=== PATIENT | male | born 1930 | race Caucasian/White ===

== ENCOUNTER 2016-11-29 05:49 | Inpatient (IN) | payer OTHER, BC ==
[2016-11-21 14:51] VITALS: BMI 28.0
--- NOTE | 2016-11-21 15:31 | PAT Medication Instructions ---
Service Date Nov 21, 2016. Current Home Medication List Carvedilol (Coreg), 25 MG PO BID Finasteride (Proscar), 5 MG PO QPM Furosemide (Lasix), 40 MG PO QAM Hydrocodone/Acetaminophen 5MG/325MG ([place] 5MG/325MG), 1 TABLET PO PRN PRN for Pain Nitroglycerin (Nitrostat), 0.3 MG UT PRN Warfarin Sod (Jantoven), 3 MG PO HS [Co Q10], 200 MG PO QAM [Medication Lotion], 1 DOSE TOP PRN Medication Instructions For Your Scheduled Surgery - Check with surgeon/cyber operator for instructions: Warfarin Sod (Jantoven), 3 MG PO HS - Hold the following medications starting 11/22/16: [Co Q10], 200 MG PO QAM - Hold the following medications 24 hours prior to surgery: [Medication Lotion], 1 DOSE TOP PRN - Hold the following medications the morning of surgery: Furosemide (Lasix), 40 MG PO QAM - Take the following medications the morning of surgery with a sip of water: Carvedilol (Coreg), 25 MG PO BID Hydrocodone/Acetaminophen 5MG/325MG (Thayne 5MG/325MG), 1 TABLET PO PRN PRN for Pain (okay to take up to 4 hours prior to surgery if needed) Nitroglycerin (Nitrostat), 0.3 MG UT PRN (if needed) - Take the following medications as scheduled the night before surgery: Hydrocodone/Acetaminophen 5MG/325MG ([place] 5MG/325MG), 1 TABLET PO PRN PRN for Pain (if needed) Nitroglycerin (Nitrostat), 0.3 MG UT PRN (if needed) Finasteride (Proscar), 5 MG PO QPM If you have any questions please call us at [phone] or [phone] or [phone]
--- NOTE | 2016-11-21 16:06 | DIAGNOSTIC IMAGING REPORT ---
CHEST PREADMISSION(PA/LAT) CLINICAL HISTORY: Preoperative chest COMPARISON STUDY: 06/05/2008 FINDINGS: Heart remains enlarged. There are postsurgical changes of a midline sternotomy. There is minor basilar atelectasis/scarring. There is no acute parenchymal consolidation. There is no failure. There is stable sclerosis of the left fourth rib anteriorly.[ IMPRESSION: Cardiomegaly. No acute findings. Electronically signed by: Cy Pelaez M.D. 11/21/2016 4:04 PM Dictated Date/Time: 11/21/2016 4:03 PM
[2016-11-21 16:27] LABS: BASO % 0.4 %; BASO ABS # 0.02 K/uL (0-0.2); COMPLETE YES; EOS % 1.8 %; HEMATOCRIT 41.4 % (42-52); IG% 0.2 %; LYMPH % 19.3 %; LYMPH ABS # 1.09 K/uL (1.2-3.4); MEAN CELL VOLUME 95.2 fL (80-100); MEAN CORPUSCULAR HEMOGLOBIN 31.3 pg (25-34); MEAN CORPUSCULAR HGB CONC 32.9 g/dl (32-36); MEAN PLATELET VOLUME 9.4 fL (7.4-10.4); MONO % 12.6 %; NEUT % 65.7 %; PLATELET COUNT 166 K/uL (130-400); RED BLOOD COUNT 4.35 M/uL (4.7-6.1); WHITE BLOOD COUNT 5.64 K/uL (4.8-10.8)
[2016-11-21 16:39] LABS: URINE APPEARANCE CLOUDY (CLEAR); URINE BILIRUBIN NEG (NEG); URINE COLOR YELLOW; URINE NITRITE NEG (NEG); URINE SPECIFIC GRAVITY 1.022 (1.000-1.030); UROBILINOGEN NEG (NEG)
[2016-11-21 16:41] LABS: INR 1.9 (0.9-1.1); MANUAL MICROSCOPIC REQUIRED? NO; PARTIAL THROMBOPLASTIN RATIO 1.4; PROTHROMBIN TIME (PATIENT) 20.6 SECONDS (9.0-12.0); REVIEW REQ? NO; SULFASALICYLIC ACID NEG (NEG)
[2016-11-21 16:46] LABS: BUN/CREATININE RATIO 30.2 (10-20); CALCIUM 9.5 mg/dl (8.5-10.1); POTASSIUM 4.3 mmol/L (3.5-5.1)
[2016-11-22 07:41] LABS: ESTIMATED AVERAGE GLUCOSE 108 mg/dl; HA1C FLAG Normal (Normal)
--- NOTE | 2016-11-28 13:52 | History and Physical ---
History & Physical Date Nov 28, 2016. 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 for left total knee arthroplasty patient's failed attempts at conservative management including injections viscous supplementations bracing relative rest activity modification History of Present Illness The patient is a 86 year old male with complaints of severe end-stage DJD bone- on-bone changes left knee presents for left total knee arthroplasty Additional History Hepatic Disease: No Endocrine Disorder: No Kidney Disease: No Hypertension: Yes Heart Disease: Yes Bleeding Tendencies: No Infectious Diseases: No Allergies Coded Allergies: Statins (Unverified Adverse Reaction, Unknown, MUSCLE ACHES, 11/28/16) Home Medications Scheduled Carvedilol (Coreg), 25 MG PO BID Finasteride (Proscar), 5 MG PO QPM Furosemide (Lasix), 40 MG PO QAM Nitroglycerin (Nitrostat), 0.3 MG UT PRN Warfarin Sod (Jantoven), 3 MG PO HS [Co Q10], 200 MG PO QAM [Medication Lotion], 1 DOSE TOP PRN Scheduled PRN Hydrocodone/Acetaminophen 5MG/325MG ([place] 5MG/325MG), 1 TABLET PO PRN PRN for Pain Physical Examination Skin: warm/dry, no rash Eyes: normal inspection, EOMI, sclerae normal ENT: normal ENT inspection, pharynx normal Head: normocephalic, atraumatic Neck: supple, no adenopathy, trachea midline Cardiovascular: regular rate, rhythm, no edema, no murmur Abdomen / GI: normal bowel sounds, non tender Back: normal inspection Extremities: normal inspection, normal range of motion, + pertinent finding ( severe end-stage DJD left knee plan for left total knee arthroplasty) Neurologic/Psych: no motor/sensory deficits, alert, normal reflexes, oriented x 3 Diagnosis Severe DJD left knee varus alignment plan for left total knee arthroplasty Plan of Treatment Was over pain management DVT prophylaxis status post total knee arthroplasty as well as probable a rehabilitation
[2016-11-29] VITALS (10 sets, daily range): BP systolic 102–154; BP diastolic 64–98; PULSE 73–96; TEMP 36.3–36.6; O2SAT 91–97; Ht 188 cm; Wt 99.3 kg
[~2016-11-29] VITALS: Ht 188 cm; Wt 99.3 kg
[~2016-11-29 05:49] MED LIST: CARV25TA2 PO; CO Q10 PO; FINA5TAB PO; FRS/40 PO; HYDR-5688 PO; NTRSL3 UT; WARF3TAB6 PO; [UNRECOGNIZED DRUG - OTHER] TOP
[2016-11-29] MEDS ORDERED: CeleBREX 200 MG CAP PO SCH (06:00)
[2016-11-29] MEDS ORDERED: CEFAZOLIN 2000 MG/60 ML D5W 60 ML IV SCH (06:00)
[2016-11-29] MEDS ORDERED: LACTATED RINGER'S 1000ML 1,000 ML IV SCH (06:00)
[2016-11-29] MEDS ORDERED: GABAPENTIN 300 MG CAP PO SCH (06:00)
[2016-11-29] MEDS ORDERED: FAMOTIDINE 20 MG TAB PO SCH (06:00)
[2016-11-29] MEDS ORDERED: ACETAMINOPHEN 500 MG TAB PO SCH (06:00)
[2016-11-29] MEDS ORDERED: DEXAMETHASONE 4 MG TAB PO SCH (06:00)
[2016-11-29] MEDS ORDERED: LACTATED RINGER'S 1000ML IV SCH (06:00)
[2016-11-29] MEDS ORDERED: METOCLOPRAMIDE HCL 10 MG TAB PO SCH (06:00)
[2016-11-29] MEDS ORDERED: LACTATED RINGER'S 1000ML 500 ML IV ONE (06:00)
[2016-11-29] MEDS ORDERED: ROPIVACAINE 5MG/ML 30 ML 150 MG, BUPIVACAINE/EPINEPHR 0.5% MPF 30 ML, KETOROLAC TROMETH... INFIL SCH ×7 (06:00)
[2016-11-29] MEDS ORDERED: BUPIVACAINE 0.5 % 5 MG/1 ML PF 10ML VIAL ONE (06:19)
--- NOTE | 2016-11-29 06:56 | History & Physical Bridge Note ---
H&P Re-Evaluation Bridge Note: I have examined the patient, reviewed the History & Physical and in the interval since the performance of the History & Physical I have noted the following changes of clinical significance: No changes noted
[2016-11-29] MEDS ORDERED: FENTANYL CITRATE INJ 50 MCG/1 ML 2 ML VIAL ONE (07:01)
[2016-11-29] MEDS ORDERED: MIDAZOLAM HCL 1 MG/ML 2ML VIAL ONE ×2 (07:01)
[2016-11-29] MEDS ORDERED: BACITRACIN 50000 UNIT VIAL ONE (07:04)
[2016-11-29] MEDS ORDERED: ORTHO JOINT ANESTHETIC ONE (07:04)
[2016-11-29] MEDS ORDERED: POVIDONE-IODINE OP SOLN 30 ML BTL ONE (07:04)
[2016-11-29] MEDS ORDERED: FENTANYL CITRATE INJ 50 MCG/1 ML 2 ML VIAL IV PRN (07:15)
[2016-11-29] MEDS ORDERED: EpHEDrine SULFATE INJ 50 MG/ML AMP IV PRN (07:15)
[2016-11-29] MEDS ORDERED: ATROPINE SULFATE 0.1 MG/ML 5ML SYR IV PRN (07:15)
[2016-11-29] MEDS ORDERED: ONDANSETRON INJ 2 MG/ML 2 ML VIAL IV PRN ×2 (07:15→09:15)
[2016-11-29 07:54] LABS: INR 1.1 (0.9-1.1); PARTIAL THROMBOPLASTIN RATIO 1.1; PROTHROMBIN TIME (PATIENT) 11.5 SECONDS (9.0-12.0)
[2016-11-29] MEDS ORDERED: MAGNESIUM HYDROXIDE SUSP 30 ML UDC PO PRN (09:15)
[2016-11-29] MEDS ORDERED: ZOLPIDEM TARTRATE 5 MG TAB PO PRN (09:15)
[2016-11-29] MEDS ORDERED: NITROGLYCERIN 0.3 MG/1 TAB 100 TAB BTL UT PRN (09:15)
[2016-11-29] MEDS ORDERED: BISACODYL 10 MG SUPP PR PRN (09:15)
[2016-11-29] MEDS ORDERED: ALUMINUM/MAGNESIUM/SIMETH (MAALOX MAX) 30 ML UDC PO PRN (09:15)
[2016-11-29] MEDS ORDERED: MoRPHine SULFATE 2 MG/ML CARP IV PRN ×2 (09:15→12:15)
[2016-11-29] MEDS ORDERED: SOD PHOSPHATE/SOD BIPHOSPHATE ENEMA 132 ML BTL PR PRN (09:15)
--- NOTE | 2016-11-29 09:55 | [facility] Operative Report ---
Operative Report Operative Date Nov 29, 2016. Pre-Operative Diagnosis Left knee severe degenerative joint disease Post-Operative Diagnosis Left knee severe degenerative joint disease Procedure(s) Performed Left total knee arthroplasty utilizing Chakraborty & Nephew journey 2 nonlocked total knee arthroplasty size 9 femur A tibia 11 poly-[address] Bill Coburn Production Quality Analyst Surgeon(s) Clemente Brady PA-C Estimated Blood Loss 5 mL Findings Patient presents with severe end-stage DJD about the left knee Nourse wants to conservative therapy is for left total knee arthroplasty after failing injections were steroid injections viscus supplementation relative rest activity modification and bracing Specimens A. Left knee bone and tissue Complication(s) None Disposition Recovery Room / PACU Indications Patient presents with severe end-stage DJD subchondral sclerosis varus alignment [id number] changes medial patellofemoral compartment for left total knee arthroplasty after failing conservative management Description of Procedure After proper prepping and draping of the left lower extremity anterior midline incision was made over the region of the extensor extensor mechanism after meticulous hemostasis was obtained and maintained in subcutaneous tissues a medial parapatellar incision was made The patella was subluxed lateralward the medial lateral gutter were cleaned from any hypertrophic synovitis and scar tissue of the distal femoral block was placed and the distal femoral osteotomy cut was made subsequently the chamfers anterior and posterior osteotomy cuts were made utilizing the 4-in-1 block the tibia was subsequently subluxed anteriorward medial and ateral meniscal remnants were excised in their entirety remnants of the anterior and posterior cruciate ligaments were excised in their entirety excellent exposure of the proximal tibia was obtained the tibial osteotomy guide was placed on the proximal tibial osteotomy cut was made once again the knee was irrigated with copious amounts of sterile saline solution the patella was subsequently everted lateralward thickened scar tissue around the patella was removed the patella was subsequently cut utilizing a freehand technique and was drilled prepared for final preparation and placement of patella socially flexion-extension gaps were checked and the equal and symmetric trials were placed to the appropriate femoral and tibial trials with poly-spacer being placed for equal flexion and extension gaps and full range of motion including extension to 0 and flexion to 140 the trial components after having been taken to recovery range of motion was subsequently removed meticulous hemostasis was obtained and maintained subsequently a knee block injection of joint cocktail including ropivacaine 0.5% 150 mg. Bupivacaine 0.5 % epinephrine 1-200,030 mL's toradol 30 mg dexamethasone 4 mg ketamine 10 mg clonidine 100 micrograms normal saline solution 30 mg was infiltrated into the soft tissues of the posterior knee medial lateral gutters and periosteal synovium special attention was paid to protect neurovascular structures at all times subsequently trial components having been removed the knee was irrigated with sterile saline solution. debris was removed the proximal tibia was subsequently prepared and was made ready for the placement of the tibial component tibial component was also cemented and tamped into position the femoral component was subsequently placed and cemented in the position the patellar component was subsequently cemented in position because hemostasis once again obtained and maintained wound having been thoroughly irrigated with debridement and debridement lavage was performed as well as a medial parapatellar incision closed with #1 Vicryl in interrupted fashion subcutaneous was closed with #2 Vicryl skin was closed with skin clips. PA-C was necessary for prepping and drapping as well as wound closure of deep fascia Sub cutaneous tissue and skin and was necessary for the case. A sterile compressive dressing was placed patient was taken to recovery in stable condition of report dictated by Almas I attest to the content of the Intraoperative Record and any orders documented therein. Any exceptions are noted below. I attest to the content of the Intraoperative Record and any orders documented therein. Any exceptions are noted below.
--- NOTE | 2016-11-29 11:02 | DIAGNOSTIC IMAGING REPORT ---
LEFT KNEE 2 VIEWS History: Left total knee arthroplasty. Degenerative arthritis. Postop. FINDINGS: The patient is status post a left total knee arthroplasty. The hardware is intact. No fracture or dislocation. Surgical drains are in place. IMPRESSION: Left total knee arthroplasty. No evidence for hardware complication. Electronically signed by: Nikos Wan M.D. 11/29/2016 11:01 AM Dictated Date/Time: 11/29/2016 11:00 AM
--- NOTE | 2016-11-29 11:53 | Anesthesiology Progress Note ---
Anesthesia Post Op Note Date & Time Nov 29, 2016 at 11:53 Vital Signs Pain Intensity: 0 Vital Signs Past 12 Hours Date Time Temp Pulse Resp B/P (MAP) Pulse Ox O2 Delivery O2 Flow Rate FiO2 11/29/16 11:05 36.4 78 16 143/85 95 Nasal Cannula 2 11/29/16 10:55 77 16 143/89 98 Nasal Cannula 2 11/29/16 10:45 77 16 141/85 98 Oxymask 10 11/29/16 10:35 71 16 133/83 100 Oxymask 10 11/29/16 10:29 36.7 72 16 139/90 98 Oxymask 10 11/29/16 06:42 36.5 81 20 151/95 (113) 92 Room Air Notes Mental Status: alert / awake / arousable, participated in evaluation Pt Amnestic to Procedure: Yes Nausea / Vomiting: adequately controlled Pain: adequately controlled Airway Patency, RR, SpO2: stable & adequate BP & HR: stable & adequate Hydration State: stable & adequate Neuraxial Anesthesia: was administered, sensory block is resolving Anesthetic Complications: no major complications apparent
[2016-11-29] MEDS: D5W AND 1/2NSS + 20MEQ KCL 1,000 ML IV SCH ×2 (12:11→22:11)
[2016-11-29] MEDS ORDERED: MoRPHine SULFATE 10 MG/ML CARP/VIAL IV PRN (12:15)
[2016-11-29] MEDS ORDERED: MoRPHine SULFATE 4 MG/ML 1 ML CARP\\VIAL IV PRN (12:15)
[2016-11-29] MEDS: ACETAMINOPHEN 500 MG TAB PO SCH ×2 (14:39→22:11)
[2016-11-29] MEDS: CEFAZOLIN IV 2,000 MG in DEXTROSE 5% 50ML 50 ML IV SCH ×2 (16:00→23:58)
[2016-11-29] MEDS ORDERED: WARFARIN SOD 5 MG TAB PO SCH (16:00)
[2016-11-29] MEDS: CARVEDILOL 25 MG TAB PO SCH (21:00)
[2016-11-29] MEDS: FINASTERIDE 5 MG TAB PO SCH (22:09)
[2016-11-29] MEDS: SENNA 8.6 MG TAB PO SCH (22:10)
[2016-11-29] MEDS: OXYCODONE HCL 10 MG TABCR (OXYCONTIN) PO SCH (22:10)
[2016-11-29] MEDS: DOCUSATE SODIUM 100 MG CAP PO SCH (22:11)
[2016-11-29] MEDS: OXYCODONE HCL IR 5 MG TAB (IMMEDIATE RELEASE) PO PRN (23:58)
[2016-11-30 03:19] VITALS: BP 130/79; PULSE 75; TEMP 36.7; O2SAT 93
[2016-11-30] MEDS: OXYCODONE HCL IR 5 MG TAB (IMMEDIATE RELEASE) PO PRN (05:38)
[2016-11-30] MEDS: ACETAMINOPHEN 500 MG TAB PO SCH ×3 (05:38→20:46)
[2016-11-30 06:31] LABS: HEMATOCRIT 35.2 % (42-52); MEAN CELL VOLUME 94.4 fL (80-100); MEAN CORPUSCULAR HEMOGLOBIN 31.4 pg (25-34); MEAN CORPUSCULAR HGB CONC 33.2 g/dl (32-36); MEAN PLATELET VOLUME 9.6 fL (7.4-10.4); PLATELET COUNT 170 K/uL (130-400); RED BLOOD COUNT 3.73 M/uL (4.7-6.1); WHITE BLOOD COUNT 20.88 K/uL (4.8-10.8)
[2016-11-30 06:59] LABS: BUN/CREATININE RATIO 24.8 (10-20); CREATININE 1.3 mg/dl (0.60-1.40); POTASSIUM 4.4 mmol/L (3.5-5.1)
--- NOTE | 2016-11-30 07:03 | Orthopedic Progress Note ---
Orthopedic Progress Note Date of Service Nov 30, 2016. Subjective Post OP Day: 1 (s/p Left TKA) Reports: feeling well, pain controlled w PO medications, Denies: complaints, chest pain, SOB, nausea / vomiting, light headedness, calf pain Objective calves soft nontender, N/V intact, capillary refill less than 2 sec., dressing C /D/I, A&O x3, toes mobile, hemovac drainage (175cc/8 hours) Date Time Temp Pulse Resp B/P (MAP) Pulse Ox O2 Delivery O2 Flow Rate FiO2 11/30/16 03:19 36.7 75 16 130/79 (96) 93 Room Air 11/29/16 23:50 Room Air 11/29/16 22:51 36.5 73 16 109/72 (84) 91 Room Air 11/29/16 22:15 77 106/64 (78) 11/29/16 19:37 36.3 79 18 102/67 (79) 95 Room Air 11/29/16 16:59 36.5 76 17 149/85 (106) 97 Nasal Cannula 3.0 11/29/16 16:00 96 Nasal Cannula 3.0 11/29/16 13:28 36.4 96 18 134/86 (102) 96 Nasal Cannula 3.0 11/29/16 12:27 36.4 82 18 147/96 (113) 97 Nasal Cannula 3.0 11/29/16 12:00 36.5 85 17 154/98 (116) 96 Nasal Cannula 3.0 11/29/16 11:25 36.6 77 17 147/88 (107) 96 Nasal Cannula 2.0 11/29/16 11:25 Nasal Cannula 2.0 11/29/16 11:25 Nasal Cannula 11/29/16 11:05 36.4 78 16 143/85 95 Nasal Cannula 2 11/29/16 10:55 77 16 143/89 98 Nasal Cannula 2 11/29/16 10:45 77 16 141/85 98 Oxymask 10 11/29/16 10:35 71 16 133/83 100 Oxymask 10 11/29/16 10:29 36.7 72 16 139/90 98 Oxymask 10 Laboratory Results 24 Hours: Test 11/30/16 06:10 Hematocrit 35.2 % Hemoglobin 11.7 g/dL Assessment & Plan Assessment: POD #1 s/p Left TKA -PT/OT -dvt proph with lenny/scd/coumadin- will f/u with PCP upon discharge for Coumadin management -plan for dc home with OPPT when stable Discharge Planning Discharge Planning: home with oppt DVT Prophylaxis: TEDs, SCDs, Coumadin Therapy: Physical Therapy
--- NOTE | 2016-11-30 07:05 | Discharge Instructions ---
Discharge Instructions Date of Service Nov 30, 2016. Admission Reason for Admission: Left Knee Osteoarthritis Discharge Discharge Diagnosis / Problem: Left Total Knee Replacement Discharge Goals Goal(s): Decrease discomfort, Improve function, Increase independence Activity Recommendations Activity Limitations: as noted below Weightbearing Status: Left weightbearing (as tolerated) . Instructions / Follow-Up Instructions / Follow-Up ACTIVITY RECOMMENDATIONS: SELF CARE INSTRUCTIONS AFTER TOTAL KNEE REPLACEMENT A. You may need to continue a physical therapy program after discharge from the hospital. There are several options available to you. Your doctor will assist you in selecting the best one for you. 1. An out-patient facility 2 to 3 times a week for therapy or home therapy. 2. Continue working on all exercises taught to you in the hospital. Your goals should be to increase bending of your knee to 90 degrees and beyond and to fully straighten your knee. B. You may progress at your own pace from walking with a walker or crutches to a cane; then to no assistive devices. C. Make walking a part of your daily routine. Be up as much as comfortable with rest periods throughout the day. Rest with leg elevation is very important. Use the ice wrap frequently for the first 3-4 weeks. D. There are no restrictions on activities. You may ride in a car, shop, participate in vocational case manager and all social activities. E. Wear the long elastic stockings (KENYA hose) 20 hours a day for 2 weeks after surgery. They can be removed several times a day for laundering and for a bath. F. You may shower, no tub baths until cleared by your doctor. SPECIAL CARE INSTRUCTIONS: VERY IMPORTANT TO READ AND REVIEW A. There are a few signs you need to watch for after you are home. Call [facility] if you notice any of the followin. Increased severe knee pain. Some pain is expected especially when you exercise. 2. Increased swelling in your leg or knee; pain or swelling of the calf muscle in either lower leg. 3. Any fluid drainage from the incision. 4. Shortness of breath or chest pain. B. Please call [facility] at if you have any concerns or questions about your operation or recovery. The doctor or his nurse will return your call promptly. C. You must take antibiotics before dental work, bladder, bowel or other surgery. Your doctor will provide you with a permanent care to carry describing this precaution. IMPORTANT: * REMEMBER TO TAKE ASPIRIN, 81 MG, TWICE DAILY FOR 4 WEEKS UNLESS OTHERWISE DIRECTED. THIS IS YOUR BLOOD THINNER. * HIGH RISK PATIENTS MAY BE PRESCRIBED A STRONGER BLOOD THINNER. THIS WILL BE PROVIDED AT DISCHARGE. * CALL IF INCREASED PAIN, REDNESS, DRAINAGE OR FEVER GREATER THAT 101. * WEAR KENYA HOSE 20 HOURS PER DAY FOR 2 WEEKS. * DERMABOND Prineo- This is a mesh tape dressing that is covered with glue. It should remain in place until the incision is properly healed, usually 10-14 days. This dressing is designed to naturally slough off. You may trim the excess mesh tape as it peels off. Incision may be briefly wet in a shower. Dry immediately by blotting with a clean, dry towel. Do not bath or swim until instructed by your doctor. Do not scratch, rub, or pick at the dressing. Do not apply any topical ointments or lotions until dressing is completely removed and/or instructed by your doctor. There may be a small piece of suture material at one end of your incision. Do not pull or trim this. If it is bothersome or catching on clothing, you may cover it with a band-aid. FOLLOW UP VISIT: If appointment is not already scheduled: Please call [facility] to make a follow-up appointment for 2 weeks after your surgery at . Current Hospital Diet Patient's current hospital diet: Regular Diet Discharge Diet Recommended Diet: Regular Diet Procedures Procedures Performed: Left total knee arthroplasty utilizing Chakraborty & Nephew journey 2 nonlocked total knee arthroplasty size 9 femur A tibia 11 poly-30 oval patella Pending Studies Studies pending at discharge: no Laboratory Results Hemoglobin A1c Test 11/21/16 15:45 Range/Units Estimated Average Glucose 108 mg/dl Hemoglobin A1c 5.4 4.5-5.6 % Medical Emergencies . Who to Call and When: Medical Emergencies: If at any time you feel your situation is an emergency, please call 911 immediately. . Non-Emergent Contact Non-Emergency issues call your: Primary Care Provider, Surgeon . "Provider Documentation" section prepared by Clemente Millard. . VTE Core Measure Inpt VTE Proph given/why not?: Tr[place] (Coumadin)Ira, [facility] [place] Drug Monitoring Program Search Results: patient reviewed within database, no issues identified
[2016-11-30 07:22] LABS: INR 1.1 (0.9-1.1)
[2016-11-30 07:23] VITALS: BP 141/88; PULSE 76; TEMP 36.4; O2SAT 92
[2016-11-30] MEDS: D5W AND 1/2NSS + 20MEQ KCL 1,000 ML IV SCH (08:00)
[2016-11-30] MEDS: DOCUSATE SODIUM 100 MG CAP PO SCH ×2 (08:05→20:45)
[2016-11-30] MEDS: CARVEDILOL 25 MG TAB PO SCH ×2 (08:06→20:45)
[2016-11-30] MEDS: PANTOprazole SOD 40 MG TAB PO SCH (08:06)
[2016-11-30] MEDS: OXYCODONE HCL 10 MG TABCR (OXYCONTIN) PO SCH ×2 (08:06→20:45)
[2016-11-30] MEDS: MULTIVITAMIN TAB PO SCH (08:06)
[2016-11-30] MEDS ORDERED: NURSING VERBAL MED ORDER ONE (08:15)
--- NOTE | 2016-11-30 08:15 | Anesthesiology Progress Note ---
Anesthesia Post Op Note Date & Time Nov 30, 2016 at 08:14 Vital Signs Vital Signs Past 12 Hours Date Time Temp Pulse Resp B/P (MAP) Pulse Ox O2 Delivery O2 Flow Rate FiO2 11/30/16 07:59 Room Air 11/30/16 07:23 36.4 76 18 141/88 (105) 92 Room Air 11/30/16 03:19 36.7 75 16 130/79 (96) 93 Room Air 11/29/16 23:50 Room Air 11/29/16 22:51 36.5 73 16 109/72 (84) 91 Room Air 11/29/16 22:15 77 106/64 (78) Notes Mental Status: alert / awake / arousable, participated in evaluation Pt Amnestic to Procedure: Yes Nausea / Vomiting: adequately controlled Pain: adequately controlled Airway Patency, RR, SpO2: stable & adequate BP & HR: stable & adequate Hydration State: stable & adequate Neuraxial Anesthesia: was administered, sensory block resolved Anesthetic Complications: no major complications apparent
[2016-11-30 10:54] VITALS: BP 97/61; PULSE 80; O2SAT 92
[2016-11-30 15:03] VITALS: BP 115/75; PULSE 66; TEMP 36.3; O2SAT 96
[2016-11-30] MEDS ORDERED: WARFARIN SOD 5 MG TAB PO SCH (16:00)
[2016-11-30 20:30] VITALS: BP 128/76; PULSE 73
[2016-11-30] MEDS: SENNA 8.6 MG TAB PO SCH (20:45)
[2016-11-30] MEDS: FINASTERIDE 5 MG TAB PO SCH (20:46)
[2016-11-30 23:06] VITALS: BP 129/77; PULSE 72; TEMP 36.4; O2SAT 98
[2016-12-01] MEDS: ACETAMINOPHEN 500 MG TAB PO SCH ×2 (05:36→13:59)
[2016-12-01 06:27] VITALS: BP 133/80; PULSE 70; TEMP 36.6; O2SAT 95
[2016-12-01 06:37] LABS: HEMATOCRIT 30.7 % (42-52); MEAN CELL VOLUME 94.2 fL (80-100); MEAN CORPUSCULAR HEMOGLOBIN 31.6 pg (25-34); MEAN CORPUSCULAR HGB CONC 33.6 g/dl (32-36); MEAN PLATELET VOLUME 9.1 fL (7.4-10.4); PLATELET COUNT 130 K/uL (130-400); RED BLOOD COUNT 3.26 M/uL (4.7-6.1); WHITE BLOOD COUNT 12.41 K/uL (4.8-10.8)
[2016-12-01 06:46] LABS: INR 1.4 (0.9-1.1); PROTHROMBIN TIME (PATIENT) 14.7 SECONDS (9.0-12.0)
[2016-12-01 07:07] LABS: BUN/CREATININE RATIO 28.2 (10-20); CALCIUM 8.6 mg/dl (8.5-10.1); CREATININE 1.3 mg/dl (0.60-1.40)
--- NOTE | 2016-12-01 08:04 | Orthopedic Progress Note ---
Orthopedic Progress Note Date of Service Dec 01, 2016. Subjective Post OP Day: 2 Reports: feeling well, Denies: chest pain, SOB, nausea / vomiting, light headedness, calf pain Objective calves soft nontender, N/V intact, incision C/D/I, A&O x3, toes mobile Date Time Temp Pulse Resp B/P (MAP) Pulse Ox O2 Delivery O2 Flow Rate FiO2 12/01/16 06:27 36.6 70 16 133/80 (97) 95 Room Air 11/30/16 23:06 36.4 72 16 129/77 (94) 98 Room Air 11/30/16 20:30 73 128/76 (93) 11/30/16 19:25 Room Air 11/30/16 16:10 Room Air 11/30/16 15:03 36.3 66 16 115/75 (88) 96 Room Air 11/30/16 10:54 80 16 97/61 (73) 92 Room Air Laboratory Results 24 Hours: Test 12/01/16 06:14 Hematocrit 30.7 % Hemoglobin 10.3 g/dL Prothromb Time International Ratio 1.4 Prothrombin Time 14.7 SECONDS Assessment & Plan Assessment: POD #2 s/p Left TKA -PT/OT -dvt proph with lenny/scd/coumadin- will f/u with PCP upon discharge for Coumadin management -plan for dc home with OPPT when stable Inhouse Planning Pain Management: Oxycontin, PO Tylenol, Oxy IR DVT Prophylaxis: TEDs, SCDs, Coumadin Discharge Planning Discharge Planning: home with oppt (DC HOME TODAY) DVT Prophylaxis: TEDs, SCDs, Coumadin Therapy: Physical Therapy
[2016-12-01] MEDS ORDERED: RXC5 PO (08:07)
[2016-12-01] MEDS ORDERED: ONDA8TAB6 PO (08:07)
[2016-12-01] MEDS ORDERED: OXYSR10 PO (08:07)
[2016-12-01] MEDS ORDERED: ACET-24 PO (08:07)
[2016-12-01] MEDS ORDERED: SNK PO (08:07)
--- NOTE | 2016-12-01 08:19 | Discharge Summary ---
Orthopedic Discharge Summary Admission Date/Reason Nov 29, 2016 at 06:40 Left Knee Osteoarthritis. Discharge Date/Disposition Dec 01, 2016 Home Diagnosis Principal Diagnosis: left knee osteoarthritis Procedure(s) Performed Left total knee arthroplasty utilizing [employer] journey 2 nonlocked total knee arthroplasty size 9 femur A tibia 11 poly-30 oval patella Consultations none Medication Reconciliation New Medications: Ondansetron Hcl (Zofran) 8 Mg Tab 8 MG PO Q8 PRN for Nausea, #20 TAB Acetaminophen (Sb Non-Aspirin Extra Stre) 500 Mg Tab 1000 MG PO Q8 for 30 Days, #180 TAB Oxycodone HCl (Oxycodone HCl) 5 Mg Tab 5-10 MG PO Q4H PRN for Pain, #60 TAB Senna (Senna Lax) 8.6 Mg Tab 17.2 MG PO HS for 14 Days, TAB Continued Medications: Carvedilol (Coreg) 25 Mg Tab 25 MG PO BID, TAB Finasteride (Proscar) 5 Mg Tab 5 MG PO QPM, TAB Furosemide (Lasix) 40 Mg Tab 40 MG PO QAM, TAB Nitroglycerin (Nitrostat) 0.3 Mg Tab 0.3 MG UT PRN Warfarin Sod (Jantoven) 3 Mg Tab 3 MG PO HS, TAB [Co Q10] () 200 MG PO QAM [Medication Lotion] () 1 DOSE TOP PRN Discontinued Medications: Hydrocodone/Acetaminophen 5MG/325MG ([employer] 5MG/325MG) Tab 1 TABLET PO PRN PRN for Pain, TAB PRN PAIN Admission Physical Exam As per Admitting History & Physical. Hospital Course Patient was a same day admission after undergoing a successful left TKA. he tolerated the procedure well. Post-operatively, his activity was progressed and well tolerated. Please refer to daily progress notes and PT notes for complete details. After exam on 12/01/16, patient felt to be stable for discharge home with OPPT. Patient will f/u in the office in 2 weeks for further evaluation including x-rays and incision check, sooner if having any issues or concerns. Below are pertinent labs/studies during their hospital stay: Last Vital Signs Documentation Date Time Temp Pulse Resp B/P (MAP) Pulse Ox O2 Delivery O2 Flow Rate FiO2 12/01/16 06:27 36.6 70 16 133/80 (97) 95 Room Air 11/29/16 16:59 3.0 Last Resulted CBC 9/8/17 06:14 Last Resulted BMP 12/01/16 06:14 Discharge Instructions ACTIVITY RECOMMENDATIONS: SELF CARE INSTRUCTIONS AFTER TOTAL KNEE REPLACEMENT A. You may need to continue a physical therapy program after discharge from the hospital. There are several options available to you. Your doctor will assist you in selecting the best one for you. 1. An out-patient facility 2 to 3 times a week for therapy or home therapy. 2. Continue working on all exercises taught to you in the hospital. Your goals should be to increase bending of your knee to 90 degrees and beyond and to fully straighten your knee. B. You may progress at your own pace from walking with a walker or crutches to a cane; then to no assistive devices. C. Make walking a part of your daily routine. Be up as much as comfortable with rest periods throughout the day. Rest with leg elevation is very important. Use the ice wrap frequently for the first 3-4 weeks. D. There are no restrictions on activities. You may ride in a car, shop, participate in boiler mechanic and all social activities. E. Wear the long elastic stockings (KENYA hose) 20 hours a day for 2 weeks after surgery. They can be removed several times a day for laundering and for a bath. F. You may shower, no tub baths until cleared by your doctor. SPECIAL CARE INSTRUCTIONS: VERY IMPORTANT TO READ AND REVIEW A. There are a few signs you need to watch for after you are home. Call [facility] if you notice any of the followin. Increased severe knee pain. Some pain is expected especially when you exercise. 2. Increased swelling in your leg or knee; pain or swelling of the calf muscle in either lower leg. 3. Any fluid drainage from the incision. 4. Shortness of breath or chest pain. B. Please call [facility] at if you have any concerns or questions about your operation or recovery. The doctor or his nurse will return your call promptly. C. You must take antibiotics before dental work, bladder, bowel or other surgery. Your doctor will provide you with a permanent care to carry describing this precaution. IMPORTANT: * REMEMBER TO TAKE ASPIRIN, 81 MG, TWICE DAILY FOR 4 WEEKS UNLESS OTHERWISE DIRECTED. THIS IS YOUR BLOOD THINNER. * HIGH RISK PATIENTS MAY BE PRESCRIBED A STRONGER BLOOD THINNER. THIS WILL BE PROVIDED AT DISCHARGE. * CALL IF INCREASED PAIN, REDNESS, DRAINAGE OR FEVER GREATER THAT 101. * WEAR KENYA HOSE 20 HOURS PER DAY FOR 2 WEEKS. * DERMABOND Prineo- This is a mesh tape dressing that is covered with glue. It should remain in place until the incision is properly healed, usually 10-14 days. This dressing is designed to naturally slough off. You may trim the excess mesh tape as it peels off. Incision may be briefly wet in a shower. Dry immediately by blotting with a clean, dry towel. Do not bath or swim until instructed by your doctor. Do not scratch, rub, or pick at the dressing. Do not apply any topical ointments or lotions until dressing is completely removed and/or instructed by your doctor. There may be a small piece of suture material at one end of your incision. Do not pull or trim this. If it is bothersome or catching on clothing, you may cover it with a band-aid. FOLLOW UP VISIT: If appointment is not already scheduled: Please call [facility] to make a follow-up appointment for 2 weeks after your surgery at .
[2016-12-01] MEDS: CARVEDILOL 25 MG TAB PO SCH (09:40)
[2016-12-01] MEDS: DOCUSATE SODIUM 100 MG CAP PO SCH (09:41)
[2016-12-01] MEDS: PANTOprazole SOD 40 MG TAB PO SCH (09:41)
[2016-12-01] MEDS: OXYCODONE HCL 10 MG TABCR (OXYCONTIN) PO SCH (09:41)
[2016-12-01] MEDS: MULTIVITAMIN TAB PO SCH (09:41)
[2016-12-01 11:49] VITALS: BP 133/80; PULSE 70; TEMP 36.6; O2SAT 95
[2016-12-01] MEDS ORDERED: WARFARIN SOD 4 MG TAB PO SCH (16:00)
== END 2016-12-01 14:10 | disposition home or self-care (01) | DRG 470 ==
LOC: C.ACU 05:49 → C.3E 06:40 → ENRESERV 10:55
PROVIDERS: ADMIT Orthopaedic Surgery; ATTEND Orthopaedic Surgery
PROC: 0SRD0J9 Replacement of Left Knee Joint with Synthetic Substitute, Cemented, Open Approach (ICD-10-PCS; principal; 2016-11-29 08:00)
DX: M17.12 Unilateral primary osteoarthritis, left knee (principal); Z79.01 Long term (current) use of anticoagulants; Z79.899 Other long term (current) drug therapy

== ENCOUNTER 2018-11-05 07:10 | Inpatient (IN) ==
--- NOTE | 2018-10-31 14:04 | Anesthesiology Consultation ---
Date of Service October 31, 2018 Assessment & Plan (1) Encounter for pre-operative examination: - Cardio: 06/06/18: No anginal symptoms. Appears euvolemic. ECHO LVEF stable. A. fib rate controlled. F/U 1 year recommended. - Eliquis instructions: patient made aware that in order for spinal anesthesia, Eliquis needs to be held for 72 hours prior to surgery (otherwise general anesthesia will be used). Patient voiced understanding and will check if okay with [facility] underwriter. Chart Review Chart Review: Acceptable Risk for Surgery and Patient seen in Pre Admission Testing Teaching & Discussion Pre-Anesthesia Teaching/Discussion Notes: Instructed NPO after midnight before surgery,except medications with 15 cc of water. Medication instructions provided according to the PAT guidelines. History Surgery Operation Date: 11/05/18 09:55 Proposed Procedures p Left Knee Removal Implant with Placement of Antibiotic Spacer - Bill Coburn DO Height/Weight Height: 6 ft 2 in Weight: 102.7 kg Allergies Allergy/AdvReac Type Severity Reaction Status Date / Time Neqhojj-Ufj-Npv Reductase AdvReac Unknown MUSCLE Verified 10/31/18 14:10 Inhibitor ACHES Medications Home Medications Medication Instructions Recorded Confirmed Last Taken Eliquis 5 mg PO BID 11/21/17 10/31/18 11/25/17 07:00 bisoprolol-hydrochlorothiazide 1 tab PO QAM 11/21/17 10/31/18 11/28/17 06:00 coQ10 (ubiquinol) 200 mg PO QAM 11/21/17 10/31/18 11/21/17 06:00 furosemide 50 mg PO QAM 11/21/17 10/31/18 11/27/17 06:00 nitroglycerin [Nitrostat] 0.4 mg SUBLINGUAL UD PRN 11/21/17 10/31/18 Unknown hydrocodone-acetaminophen [[place]] 1 - 2 tab PO Q6H PRN #30 tab NS 11/28/17 10/31/18 Unknown MDD 6 tabs in 24 hours Cipro 1 dose PO UD 10/31/18 10/31/18 Unknown tamsulosin [Flomax] 0.4 mg PO QAM 10/31/18 10/31/18 Unknown Past Medical History Medical History Anemia History of recent hospitalization hospitalized 10/24/18 ([facility]) w/ UTI/Sepsis, possible septic joint? (left knee)- reason for upcoming surgery Atrial fibrillation chronic, on eliquis BPH (benign prostatic hyperplasia) Chronic back pain Chronic systolic heart failure EF 40% 10/24/17 Coronary artery disease s/p CABG () s/p cardiac stents x 3 total (most recent 2009) Hyperlipidemia Hypertension Ischemic cardiomyopathy Osteoarthritis Exercise / Class Metabolic Activity III < 4 Walking/Shop/Light housework Past Surgical History Surgical History H/O cardiac catheterization 2001: Xience to mid LAD 2007: Prox RCA 2010: mid PDA History of arthroscopy of left knee 11/28/17: LMA#5 at [facility] History of colonoscopy History of coronary artery bypass graft CABG x4 () History of detached retina repair RIGHT History of esophagogastroduodenoscopy (EGD) History of tonsillectomy History of tooth extraction History of total knee replacement R/L Past Anesthesia History No Hx of Anesthesia Complications and No Family Hx of Anesthesia Complications History of PONV No Hx of PONV and No Hx of Motion Sickness Social History Smoking Status: Never smoker Do You Dip or Chew Tobacco: No Hx Alcohol Use: No Hx Substance Use: No substance use type: does not use Review of Systems Chronic cough felt 2/2 "air conditioners." Patient denies chest pain, shortness of breath, dyspnea on exertion, wheezing, palpitations. Physical Exam Vital Signs VITALS BP 156/82 P 81 TEMP 98.0 SP02 96%RA RESP 18 PHYSICAL Full neck and c-spine range of motion. Full TMJ range of motion. TMD 3 finger breaths Mallampati Score 2 Dentition: intact Lungs: clear throughout to auscultation Cardiac: regular rate and rhythm, no murmurs noted Spine: normal Carotid arteries: negative bruit Extremities: no edema Testing Laboratory Results 10/31/18 14:55 PT 12.2 Seconds (9.0-12.0) H 10/31/18 14:55 INR 1.2 (0.9-1.1) H 10/31/18 14:55 APTT 28.5 Seconds (21.0-31.0) 10/31/18 14:55 Hemoglobin A1c 5.7 % (4.5-5.6) H 10/31/18 14:55 Urine Color Yellow 10/31/18 Unknown Urine Appearance Clear (Clear) 10/31/18 Unknown Urine pH 6.0 (4.5-7.5) 10/31/18 Unknown Ur Specific [place] 1.015 (1.000-1.030) 10/31/18 Unknown Urine Protein Negative (Negative) 10/31/18 Unknown Urine Glucose (UA) Negative (Negative) 10/31/18 Unknown Urine Ketones Negative (Negative) 10/31/18 Unknown Urine Nitrite Negative (Negative) 10/31/18 Unknown Ur Leukocyte Esterase Negative (Negative) 10/31/18 Unknown Urine WBC (Auto) 1-5 /hpf (0-5) 10/31/18 Unknown Urine RBC (Auto) 5-10 /hpf (0-4) H 10/31/18 Unknown U Hyaline Cast (Auto) 1-5 /lpf (0-5) 10/31/18 Unknown U Epithel Cells (Auto) 10-20 /lpf (0-5) H 10/31/18 Unknown Urine Bacteria (Auto) Negative (Negative) 10/31/18 Unknown Blood Type O Positive 10/31/18 14:55 Antibody Screen NEGATIVE 10/31/18 14:55 10/27/18 SODIUM 136 POTASSIUM 3.9 CHLORIDE 105 CO2 27 BUN 23 CREATININE 1.20 GLUCOSE 88 Electrocardiogram Date: 06/06/18 A. fib at 79bpm. NS QRS widening. NS TWA. Chest X-Ray Date: 10/24/18 Stable mild cardiomegaly. Postsurgical CABG changes. Mild pulmonary vascular co ngestion without pulmonary edema. Suboptimal inspiration with linear densities in lung bases most likely representing atelectasis. No pleural effusion. Echocardiogram Date: 05/27/18 EF 41%. Mild global HK. Severe LAD. Moderate RAD. Mild cLVH. Moderate RAD. Mild mitral stenosis.
--- NOTE | 2018-10-31 14:55 | PAT Medication Instructions ---
Medication Instructions Date of Service October 31, 2018 Home Medications Medication Instructions Recorded hydrocodone-acetaminophen [Frederic] 1 - 2 tab PO Q6H PRN #30 tab NS 11/28/17 MDD 6 tabs in 24 hours Eliquis 5 mg PO BID bisoprolol-hydrochlorothiazide 1 tab PO QAM coQ10 (ubiquinol) 200 mg PO QAM furosemide 50 mg PO QAM nitroglycerin [Nitrostat] 0.4 mg SUBLINGUAL UD PRN hydrocodone-acetaminophen [Frederic] 1 - 2 tab PO Q6H PRN Cipro 1 dose PO UD tamsulosin [Flomax] 0.4 mg PO QAM Continue as directed Cipro 1 dose PO UD nitroglycerin [Nitrostat] 0.4 mg SUBLINGUAL UD PRN (if needed) ASK your prescriber and surgeon Eliquis 5 mg PO BID (in order for spinal anesthesia, need to stop Eliquis 72 hours/3 days before surgery- please check if this is okay with your pharmaceutical salesperson) DO NOT take the morning of surgery furosemide 50 mg PO QAM Take morning of surgery With a small sip of water, OTHERWISE NOTHING TO EAT OR DRINK AFTER MIDNIGHT: bisoprolol-hydrochlorothiazide 1 tab PO QAM hydrocodone-acetaminophen [Frederic] 1 - 2 tab PO Q6H PRN (okay to take up to 4 hours prior to surgery if needed) tamsulosin [Flomax] 0.4 mg PO QAM Other Notes If you have any questions please call us at [phone] or [phone] or [phone] or [phone]
[2018-10-31 15:40] LABS: Basophils # (auto) 0.02 K/uL (0-0.2); Basophils % (auto) 0.3 %; Eosinophils # (auto) 0.13 K/uL (0-0.5); Eosinophils % (auto) 1.9 %; Hematocrit (blood only) 33.7 % (42-52); Hemoglobin 10.5 g/dL (14.0-18.0); Immature Granulocytes # (auto) 0.06 K/uL (0.00-0.02); Immature Granulocytes % (auto) 0.9 %; Lymphocytes # (auto) 1.11 K/uL (1.2-3.4); Lymphocytes % (auto) 15.9 %; Mean Corpuscular Hgb Conc 31.2 g/dL (32-36); Mean Corpuscular Volume 86.4 fL (80-100); Mean Platelet Volume 8.8 fL (7.4-10.4); Monocytes # (auto) 0.93 K/uL (0.11-0.59); Monocytes % (auto) 13.3 %; Neutrophils # (auto) 4.74 K/uL (1.4-6.5); Neutrophils % (auto) 67.7 %; Platelet Count 282 K/uL (130-400); RDW Coefficient of Variation 18.2 % (11.5-14.5); White Blood Count 6.99 K/uL (4.8-10.8)
[2018-10-31 15:46] LABS: Appearance Urine Clear (Clear); Bacteria Urine Automated Negative (Negative); Bilirubin Urine Negative (Negative); Blood Urine Trace (Negative); Color Urine Yellow; Glucose Urine UA Negative (Negative); Ketones Urine Negative (Negative); Leukocyte Esterase Urine Negative (Negative); Nitrite Urine Negative (Negative); Protein Urine Negative (Negative); Specific Gravity Urine 1.015 (1.000-1.030); Urobilinogen Urine Negative (Negative)
[2018-10-31 15:56] LABS: INR 1.2 (0.9-1.1); Partial Thromboplastin Ratio 1.1; Partial Thromboplastin Time 28.5 Seconds (21.0-31.0); Prothrombin Time 12.2 Seconds (9.0-12.0)
[2018-11-01 06:14] LABS: Estimated Average Glucose 117 mg/dl; Hemoglobin A1C 5.7 % (4.5-5.6)
--- NOTE | 2018-11-02 07:31 | History & Physical Report ---
Date of Service November 02, 2018 Date of Surgery: 11/05/18 Assessment & Plan (1) Infection of total left knee replacement: Further care discussed with patient and at this point in time would need to proceed with removal of left TKA implant and placement of antibiotic spacer. will consult ID for antibiotic recommendations, will need PICC post op. staged procedure with eventual revision TKA once infection has been cleared. plan on discharge with HHPT. DVT prophalaxis with TEDs, SCDs and will also place on aspirin 81 mg p.o. b.i.d. for a month postop. Patient will have follow up appointment in our office two weeks post op for staple removal and re-evaluation. Patient otherwise has no other questions or concerns. History of Present Illness Chief Complaint: left knee pain and swelling s/p left TKA Primary Care Provider: Bill Israel Mr Christensen is an 88 year old male who is here for a follow up of left knee pain, presents for pre-op evaluation prior to left knee arthrotomy, removal of TKA implant and placement of antibiotic spacer. Mr Christensen underwent a left TKA on 11-29-16 and initially did well except for some generalized stiffness in his knee. After about 9 months he was having pain along with his stiffness without any known injuries. Xrays at that time did not show any signs of loosening or acute findings. He was followed closely and after discussion was decided to proceed with left knee arthroscopy with excision of hypertrophic scar on 11-28-17. At that time, intra-op cultures and gram stain were performed, and was negative for any organisms and no growth. Most recently he presented to our office end of September with recurrent knee effusion, since his synovial fluid was negative for organisms and negative cultures from November, it was felt a bone scan was necessary to rule out aseptic loosening or infection and aspirated was held at that time due to previous negative cultures. From the time of that office visit until now, patient had been admitted to [facility] for UTI sepsis with possible left knee joint infection. He received IV Abx while there and was discharged on 10/28/18 on PO Cipro. He presented on 10/30/18 for follow up of that discharge and bone scan results. Bone scan results showing increased uptake concerning for joint infection. At that visit synovasure testing was performed and those resul ts are currently pending. his Bone scan does show loosening of the tibial component with increased uptake concerning for infection. At this point, it was decided to proceed with removal of TKA implant and placement of antibiotic spacer. Allergies Allergy/AdvReac Type Severity Reaction Status Date / Time Saxhbke-Ngj-Ddx Reductase AdvReac Unknown MUSCLE Verified 10/31/18 14:10 Inhibitor ACHES Home Medications Home Medications Medication Instructions Recorded Confirmed Type Eliquis 5 mg PO BID 11/21/17 10/31/18 History bisoprolol-hydrochlorothiazide 1 tab PO QAM 11/21/17 10/31/18 History coQ10 (ubiquinol) 200 mg PO QAM 11/21/17 10/31/18 History furosemide 50 mg PO QAM 11/21/17 10/31/18 History nitroglycerin [Nitrostat] 0.4 mg SUBLINGUAL UD PRN 11/21/17 10/31/18 History hydrocodone-acetaminophen [[place]] 1 - 2 tab PO Q6H PRN #30 tab NS 11/28/17 10/31/18 Rx MDD 6 tabs in 24 hours Cipro 1 dose PO UD 10/31/18 10/31/18 History tamsulosin [Flomax] 0.4 mg PO QAM 10/31/18 10/31/18 History Past Med/Surg History Medical History Anemia History of recent hospitalization hospitalized 10/24/18 ([facility]) w/ UTI/Sepsis, possible septic joint? (left knee)- reason for upcoming surgery Atrial fibrillation chronic, on eliquis BPH (benign prostatic hyperplasia) Chronic back pain Chronic systolic heart failure EF 40% 10/24/17 Coronary artery disease s/p CABG () s/p cardiac stents x 3 total (most recent 2009) Hyperlipidemia Hypertension Ischemic cardiomyopathy Osteoarthritis Surgical History H/O cardiac catheterization 2001: Xience to mid LAD 2007: Prox RCA 2010: mid PDA History of arthroscopy of left knee 11/28/17: LMA#5 at [facility] History of colonoscopy History of coronary artery bypass graft CABG x4 () History of detached retina repair RIGHT History of esophagogastroduodenoscopy (EGD) History of tonsillectomy History of tooth extraction History of total knee replacement R/L Social History Preferred Language: Upper Sorbian Communication Ability: Effective 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 Feeder Required: No Beliefs That Will Affect Care: None Current Living Situation: Spouse Feels Safe at Home: Yes Smoking Status: Never smoker Second Hand Exposure: No ; Hx Alcohol Use: No Hx Substance Use: No Review of Systems Review of Systems: All systems reviewed & are unremarkable except as noted in HPI & below Constitutional: no fever, no chills and no sweats Respiratory: no cough and no dyspnea Cardiovascular: no chest pain, no dyspnea and no orthopnea Gastrointestinal: no abdominal pain, no nausea and no vomiting Musculoskeletal: as per Subjective / HPI Physical Exam Physical Exam: BP: 122/88 Pulse: 82 HT: 6ft 2in WT: 102.7kg Constitutional: WD/WN, vitals as above no acute distress Respiratory: normal respiratory effort, lungs clear to auscultation no respiratory distress, no labored breathing and does not use accessory muscles Cardiovascular: RRR, no murmur, no edema Gastrointestinal (Abdomen): normal bowel sounds, soft, nontender, no hepatosplenomegaly Musculoskeletal: Left Knee Exam Wale ambulates with a limp, overall neutral alignment, there is moderate effusion, no atrophy noted, no erythema. maximum tenderness medial joint line. valgus stress Negative, Varus stress Negative, no Extensor lag, he doesn't have any pain with passive or active ROM on exam.Range of motion 0/3/115. No pain with active/passive ROM of ankle. Lower Extremity Strength normal. Lower Extremity Neuro-vascular is normal Results & Data Laboratory Results Laboratory Results WBC 6.99 K/uL (4.8-10.8) 10/31/18 14:55 RBC 3.90 M/uL (4.7-6.1) L 10/31/18 14:55 Hgb 10.5 g/dL (14.0-18.0) L 10/31/18 14:55 Hct 33.7 % (42-52) L 10/31/18 14:55 MCV 86.4 fL (80-100) 10/31/18 14:55 MCH 26.9 pg (25-34) 10/31/18 14:55 MCHC 31.2 g/dL (32-36) L 10/31/18 14:55 RDW Std Deviation 57.0 fL (36.4-46.3) H 10/31/18 14:55 RDW Coeff of Ernesto 18.2 % (11.5-14.5) H 10/31/18 14:55 Plt Count 282 K/uL (130-400) 10/31/18 14:55 MPV 8.8 fL (7.4-10.4) 10/31/18 14:55 Immature Gran % (Auto) 0.9 % 10/31/18 14:55 Neut % (Auto) 67.7 % 10/31/18 14:55 Lymph % (Auto) 15.9 % 10/31/18 14:55 Jackson % (Auto) 13.3 % 10/31/18 14:55 Eos % (Auto) 1.9 % 10/31/18 14:55 Baso % (Auto) 0.3 % 10/31/18 14:55 Immature Gran # (Auto) 0.06 K/uL (0.00-0.02) H 10/31/18 14:55 Neut # (Auto) 4.74 K/uL (1.4-6.5) 10/31/18 14:55 Lymph # (Auto) 1.11 K/uL (1.2-3.4) L 10/31/18 14:55 Jackson # (Auto) 0.93 K/uL (0.11-0.59) H 10/31/18 14:55 Eos # (Auto) 0.13 K/uL (0-0.5) 10/31/18 14:55 Baso # (Auto) 0.02 K/uL (0-0.2) 10/31/18 14:55 PT 12.2 Seconds (9.0-12.0) H 10/31/18 14:55 INR 1.2 (0.9-1.1) H 10/31/18 14:55 APTT 28.5 Seconds (21.0-31.0) 10/31/18 14:55 PTT Ratio 1.1 10/31/18 14:55 Estimat Average Glucose 117 mg/dl 10/31/18 14:55 Hemoglobin A1c 5.7 % (4.5-5.6) H 10/31/18 14:55 Albumin 3.0 gm/dl (3.4-5.0) L 10/31/18 14:55 Urine Color Yellow 10/31/18 Unknown Urine Appearance Clear (Clear) 10/31/18 Unknown Urine pH 6.0 (4.5-7.5) 10/31/18 Unknown Ur Specific [place] 1.015 (1.000-1.030) 10/31/18 Unknown Urine Protein Negative (Negative) 10/31/18 Unknown Urine Glucose (UA) Negative (Negative) 10/31/18 Unknown Urine Ketones Negative (Negative) 10/31/18 Unknown Urine Blood Trace (Negative) H 10/31/18 Unknown Urine Nitrite Negative (Negative) 10/31/18 Unknown Urine Bilirubin Negative (Negative) 10/31/18 Unknown Urine Urobilinogen Negative (Negative) 10/31/18 Unknown Ur Leukocyte Esterase Negative (Negative) 10/31/18 Unknown Urine WBC (Auto) 1-5 /hpf (0-5) 10/31/18 Unknown Urine RBC (Auto) 5-10 /hpf (0-4) H 10/31/18 Unknown U Hyaline Cast (Auto) 1-5 /lpf (0-5) 10/31/18 Unknown U Epithel Cells (Auto) 10-20 /lpf (0-5) H 10/31/18 Unknown Urine Bacteria (Auto) Negative (Negative) 10/31/18 Unknown Blood Type O Positive 10/31/18 14:55 Antibody Screen NEGATIVE 10/31/18 14:55 Diagnostic Findings xray and bone scan results as outlined in the HPI Synovasure results currently pending at the time of this H&P
[~2018-11-05 07:10] MED LIST changes: +ACETAMINOPHEN 500 MG TAB PO SCH; +BUPIVACAINE 0.25% 30 ML VIAL ONE; +BUPIVACAINE 0.5 % 5 MG/1 ML PF 10ML VIAL ONE; -CARV25TA2 PO; +CEFAZOLIN 2000MG 2,000 MG/15 ML SYR IV SCH; -CO Q10 PO; +CeleBREX 200 MG CAP PO SCH; +FAMOTIDINE 20 MG TAB PO SCH; -FINA5TAB PO; -FRS/40 PO; +GABAPENTIN 300 MG CAP PO SCH; -HYDR-5688 PO; +LR 500ML BOLUS, THEN 15ML/HR IV SCH; +METOCLOPRAMIDE HCL 10 MG TABLET PO SCH; -NTRSL3 UT; +ROPIVACAINE 0.5% HCL/PF 150 MG, BUPIVACAINE 0.5% MPF 30 ML, EPINEPHrine 30MG/30ML (OR U... INSTIL SCH; -WARF3TAB6 PO; -[UNRECOGNIZED DRUG - OTHER] TOP; +dexAMETHasone 4 MG TAB PO SCH
--- NOTE | 2018-11-05 08:13 | History & Physical Bridge Note ---
Date of Service November 05, 2018 History & Physical Bridge Note I have examined the patient, reviewed the History & Physical and in the interval since the performance of the History & Physical I have noted the following changes of clinical significance: no changes noted
[2018-11-05] MEDS ORDERED: GABAPENTIN 300 MG CAP ONE (08:37)
[2018-11-05] MEDS ORDERED: CeleBREX 200 MG CAP ONE (08:37)
[2018-11-05] MEDS ORDERED: METOCLOPRAMIDE HCL 10 MG TABLET ONE (08:37)
[2018-11-05] MEDS ORDERED: ACETAMINOPHEN 500 MG TAB ONE (08:37)
[2018-11-05] MEDS ORDERED: FAMOTIDINE 20 MG TAB ONE (08:37)
[2018-11-05] MEDS ORDERED: dexAMETHasone 4 MG TAB PO ONE (08:37)
[2018-11-05] MEDS ORDERED: CEFAZOLIN 2,000 MG/15 ML IV PUSH IV ONE (08:38)
[2018-11-05] MEDS ORDERED: ROPIVACAINE 0.5% 5 MG/ML 30 ML VIAL ONE (09:13)
[2018-11-05] MEDS ORDERED: fentaNYL citrate 100 MCG/2 ML VIAL ONE (09:14)
[2018-11-05] MEDS ORDERED: LIDOCAINE HCL 2% 2 ML VIAL/AMP(20MG/ML) INFIL ONE (09:14)
[2018-11-05] MEDS ORDERED: PROPOFOL IV EMULSION 10 MG/ML 20 ML VIAL IV ONE ×2 (09:14→11:27)
[2018-11-05] MEDS ORDERED: HYDROmorphone INJ 1 MG/ML SYRINGE IV PRN (09:54)
[2018-11-05] MEDS ORDERED: KETOROLAC TROMETHAMINE 15 MG/ML VIAL IV PRN (09:54)
[2018-11-05] MEDS ORDERED: PHENYLEPHRINE 100MCG/ML 5ML SYR IV PRN (09:54)
[2018-11-05] MEDS ORDERED: ePHEDrine sulfate 50 MG/ML AMP IV PRN (09:54)
[2018-11-05] MEDS ORDERED: ATROPINE SULFATE 0.1 MG/ML 10ML SYR IV PRN (09:54)
[2018-11-05] MEDS ORDERED: ONDANSETRON INJ 2 MG/ML 2 ML VIAL IV PRN ×2 (09:54→13:32)
[2018-11-05] MEDS ORDERED: MIDAZOLAM HCL 1 MG/ML 2ML VIAL ONE (09:56)
[2018-11-05] MEDS ORDERED: VANCOMYCIN HCL 1000MG/20ML VIAL ONE (10:25)
[2018-11-05] MEDS ORDERED: ONDANSETRON INJ 2 MG/ML 2 ML VIAL ONE (10:28)
[2018-11-05] MEDS: BACITRACIN INJ 50,000 UNIT VIAL ONE ×2 (11:39→11:43)
--- NOTE | 2018-11-05 12:01 | Operative Report ---
Post Operative Report Pre & Post Diagnosis Operation Date: 11/05/18 09:55 Pre-Op Diagnosis: Left Knee Infection of Implant Post-Op Diagnosis: Left Knee Infection of Implant Procedure Operation Date: 11/05/18 09:55 Actual Procedures p Left Knee Removal Implant with Placement of Antibiotic Spacer(Left) articulated spacer utilizing Biomet 77 femur trial with a 10 mm tibial insert 9 g of vancomycin mixed with 3 simplex methylmethacrylate- Bill Coburn DO Surgeon Bill Coburn DO Video Production Intern Clemente COLÓN Estimated Blood Loss 10 Findings Consistent with Post-Op Diagnosis Patient presents with complaints of swollen painful left knee had been previously admitted [facility] with sepsis 1 week prior has a swollen thickened knee with a hot bone scan both femur and tibial side so [facility] preoperative testing was consistent with an infection sed rate was elevated as well as CRP patient had been on a trial of ciprofloxacin after being discharged from hospital which was discontinued yesterday intraoperative cultures were taken there is no obvious signs of infection with loosening of tibial implant loosening of femoral implant markedly thickened hypertrophic synovium throughout all 3 compartments of the knee consistent with that of a chronic infected left total knee arthroplasty Specimens Bone synovium implants Drains Medium bore Hemovac Complications none Disposition Accompanied Patient To Recovery: No Disposition: Recovery Room Indications Patient presents with a swollen left knee with chronically thickened synovium positive bone scan positive increase the sed rate and C-reactive proteins as well as a positive Synovasure testing of the left knee intraoperative findings were consistent with that of markedly thickened hypertrophic synovium loosened tibial and femoral implants consistent with that of a chronic infection intraoperative cultures were taken patient had recently been discharged from a admission in [facility] with a sepsis of unknown determine etiology Description of Procedure After proper identification of the patient the left lower extremity socially prepped draped in sterile fashion. Utilizing an anterior incision dissection carried down through subcutaneous tissues to the region of the extensor mechanism medial parapatellar incision was made seropurulent with sterile fluid was aspirated and evacuated from the knee joint the wound was irrigated with 3 L of bacitracin antibiotic solution initially subsequently a synovectomy was performed both medial anterior lateral compartments posterior compartment of hypertrophic thickened infected synovium was removed the tibial plate was clearly loose and femoral implant had areas of loosening was gently removed utilizing Ultra-Drive the tibia was also removed with orders chisels and tamp patellar component was removed after a thorough complete synovectomy utilizing a Cryptopay jet fork synovium bone the wound was irrigated dried the drapes were changed gloves gowns were changed the wound had been thoroughly irrigated the components removed the femoral size 77 Biomet trial component was brought on the field as well as poly-these were both loosely cemented with methylmethacrylate which was mixed with 9 g of vancomycin the wound was then once again irrigated the symptoms femoral component the subsequently the tibial component and subsequently the patellar component were all inspected instead in standard fashion the wound was irrigated once again a medium bore Hemovacs placed in a deep wound the medial proptosis closed #1 Vicryl subcuticular 2-0 Vicryl skin was closed skin clips sterile compressive dressings placed please note ELDON Bronson was necessary prepping draping retraction wound closure of the fascia subcu and skin was necessary for the case I attest to the content of the Intraoperative Record and any orders documented therein. Any exceptions are noted below.
--- NOTE | 2018-11-05 13:15 | Anesthesiology Progress Note ---
Date of Service November 05, 2018 Anesthesia Post Procedure Vital Signs Vital Signs: Temp Pulse Resp BP Pulse Ox 11/05/18 13:05 67 16 131/80 98 11/05/18 12:55 68 16 114/79 100 11/05/18 12:49 36.0 C L 69 14 133/78 98 11/05/18 08:18 36.5 C 82 20 166/89 H 100 Transfer of Care Handoff Completed per policy Notes Mental Status: alert / awake / arousable Patient Amnestic to Procedure: Yes Nausea / Vomiting: adequately controlled Pain: adequately controlled Airway Patency, RR, SpO2: stable & adequate BP & HR: stable & adequate Hydration State: stable & adequate Anesthetic Complications: no major complications apparent
--- NOTE | 2018-11-05 13:25 | XRay Report ---
XR knee LT 2V routine CLINICAL HISTORY: Surgical Post Op COMPARISON: 11/29/2016 DISCUSSION: Interval removal of tibial prosthetic. Additional cement/antibiotic material has been charla lied to the proximal tibia. Alignment is anatomic. Expected soft tissue postoperative change IMPRESSION: Postoperative change as noted. Resection or removal of the tibial prosthetic. The above report was generated using voice recognition software. It may contain grammatical, syntax or spelling errors. Electronically signed by: Clemente Funes M.D. 11/05/2018 1:23 PM
[2018-11-05] MEDS ORDERED: METOCLOPRAMIDE HCL INJ 5 MG/ML 2 ML VIAL IV PRN (13:32)
[2018-11-05] MEDS ORDERED: NITROGLYCERIN SL 0.4 MG/TAB TAB SL PRN (13:32)
[2018-11-05] MEDS ORDERED: MAGNESIUM HYDROXIDE SUSP 30 ML UDC PO PRN (13:32)
[2018-11-05] MEDS ORDERED: HYDROmorphone INJ 0.5 MG/0.5 ML SYR IV PRN (13:32)
[2018-11-05] MEDS ORDERED: NALOXONE HCL 0.4 MG/1 ML VIAL/CARP IV PRN (13:32)
[2018-11-05] MEDS ORDERED: BISACODYL 10 MG SUPP PR PRN (13:32)
[2018-11-05] MEDS ORDERED: VANCOMYCIN CONSULT ACTIVE PRN (13:32)
[2018-11-05] MEDS ORDERED: VANCOMYCIN HCL 2,500 MG in SODIUM CHLORIDE 0.9% 500 ML IV SCH (14:30)
[2018-11-05] MEDS: ACETAMINOPHEN 500 MG TAB PO SCH ×2 (14:33→21:46)
--- NOTE | 2018-11-05 14:39 | Pharmacy Report ---
Pharmacy Abx Initial Consult - Date of Service November 05, 2018 - Pharmacy Dosing Scope Date of Consult: 11/05/18 Consultation requested by: Clemente Millard PA-C Pharmacy is consulted to initiate Vancomycin IV dosing therapy, order appropriate labs and adjust drug dose/frequency. - Subjective The patient is a 88 year old M admitted on 11/05/18 12:48. - Objective Height: 6 ft 2 in Weight: 104.598 kg Vital Signs (Past 12hrs): Vital Signs Temp Pulse Resp BP Pulse Ox 11/05/18 14:26 36.5 C 81 18 141/82 H 91 11/05/18 13:57 76 16 158/92 H 93 11/05/18 13:15 36.5 C 67 16 135/80 98 11/05/18 13:05 67 16 131/80 98 11/05/18 12:55 68 16 114/79 100 11/05/18 12:49 36.0 C L 69 14 133/78 98 11/05/18 08:18 36.5 C 82 20 166/89 H 100 Micro Results: 11/05/18 10:47 Gram Stain - Pending Knee,Left Joint Fluid Culture - Pending - Risk Factors for Resistance None - Assessment & Plan Assessment 88 year old M with infection of L TKA, underwent replacement of hardware this morning (11/05/18) Renal function from outside facility appear to be at baseline (SCr ~ 1.10 mg/dL; CrCl ~ 62 mL/min based on Adj.BW) Did receive a 2 gm dose of Cefazolin pre-op Plan IV 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 Thank you.
[2018-11-05] MEDS ORDERED: PIPERACILL/TAZOBAC CONSULT ACTIVE PRN (15:19)
--- NOTE | 2018-11-05 15:19 | Infectious Disease Consult ---
Date of Consultation November 05, 2018 Assessment & Plan (1) Infection of total left knee replacement: will add zosyn in addition to vanco and follow cultures. will repeat blood cultures as well with recent E. coli bsi infection. History of Present Illness Attending Physician: Bill Coburn DO pt admitted after being found on outpt exam to have swollen left knee, also recently diagnosed with E. coli uti and bsi, on po cipro per patient and family at bedside. per chart pt had outpt bone scan and was abnormal. wbc 8.9, was as high as 23 on 10/24. creat 1.0. Urine and blood culture done as outpt grew E. coli resisant to amp/sulbactam only. OR cultures pending, underwent spacer today, tolerated well. seen post op. min pain, drain in place. no cp, sob, cough, alfredo, no abd pain, no n/v/d. no gu symptoms currently. placed on vanco tolerating well. All remaining ros reviewed and are negative. Allergies Allergy/AdvReac Type Severity Reaction Status Date / Time Bwmufhy-Pug-Wec Reductase AdvReac Unknown MUSCLE Verified 11/05/18 07:48 Inhibitor ACHES Home Medications Home Medications Medication Instructions Recorded Confirmed Type Eliquis 5 mg PO BID 11/21/17 11/05/18 History bisoprolol-hydrochlorothiazide 1 tab PO QAM 11/21/17 11/05/18 History coQ10 (ubiquinol) 200 mg PO QAM 11/21/17 11/05/18 History furosemide 50 mg PO QAM 11/21/17 11/05/18 History nitroglycerin [Nitrostat] 0.4 mg SUBLINGUAL UD PRN 11/21/17 11/05/18 History hydrocodone-acetaminophen [[place]] 1 - 2 tab PO Q6H PRN #30 tab NS 11/28/17 11/05/18 Rx MDD 6 tabs in 24 hours Cipro 1 dose PO UD 10/31/18 11/05/18 History tamsulosin [Flomax] 0.4 mg PO QAM 10/31/18 11/05/18 History Patient History Medical History Anemia Atrial fibrillation chronic, on eliquis BPH (benign prostatic hyperplasia) Chronic back pain Chronic systolic heart failure EF 40% 10/24/17 Coronary artery disease s/p CABG () s/p cardiac stents x 3 total (most recent 2009) History of recent hospitalization hospitalized 10/24/18 ([facility] [place]) w/ UTI/Sepsis, possible septic joint? (left knee)- reason for upcoming surgery Hyperlipidemia Hypertension Ischemic cardiomyopathy Osteoarthritis Surgical History H/O cardiac catheterization 2000: Xience to mid LAD 2007: Prox RCA 2010: mid PDA History of arthroscopy of left knee 11/28/17: LMA#5 at [facility] History of colonoscopy History of coronary artery bypass graft CABG x4 () History of detached retina repair RIGHT History of esophagogastroduodenoscopy (EGD) History of tonsillectomy History of tooth extraction History of total knee replacement R/L Social History Preferred Language: Yi Communication Ability: Effective Shell Trim Operator Required: No Beliefs That Will Affect Care: None Current Living Situation: Spouse Other Information That Helps Us Care for You: No Feels Safe at Home: Yes Safety Concerns: Feels Safe At This Time Smoking Status: Never smoker Do You Dip or Chew Tobacco: No ; Second Hand Exposure: No ; Hx Alcohol Use: No Hx Substance Use: No Review of Systems Review of Systems: All systems reviewed & are unremarkable except as noted in HPI & below Physical Exam Constitutional: WD/WN, vitals as above Eyes: PERRL, conjunctivae normal, anicteric sclerae ENMT: external ear and nose normal, oropharynx normal Neck: trachea midline, no thyromegaly normal visual inspection Respiratory: normal respiratory effort, lungs clear to auscultation Cardiovascular: RRR, no murmur, no edema Gastrointestinal (Abdomen): normal bowel sounds, soft, nontender, no hepatosplenomegaly Musculoskeletal: no cyanosis or clubbing, extremities motor strength 5/5 Skin: no rashes, warm and dry Psychiatric: A+Ox3, euthymic affect Results & Data Vital Signs (Past 12 Hours) Vital Signs Temp Pulse Resp BP Pulse Ox 11/05/18 14:26 36.5 C 81 18 141/82 H 91 11/05/18 13:57 76 16 158/92 H 93 08/13/19 13:15 36.5 C 67 16 135/80 98 11/05/18 13:05 67 16 131/80 98 11/05/18 12:55 68 16 114/79 100 11/05/18 12:49 36.0 C L 69 14 133/78 98 11/05/18 08:18 36.5 C 82 20 166/89 H 100 PG Care Time/CCT Total # of Minutes Spent Total Time Spent with Patient: Total time spent is greater than 50% in coordination of care (as documented) at patient's floor/unit and/or counseling patient:
[2018-11-05] MEDS ORDERED: PIPERACILLIN/TAZOBACTAM 3.375 GM in DEXTROSE 5% 100 ML IV ONE (16:00)
[2018-11-05] MEDS: SODIUM CHLORIDE 0.9% 1000ML 1,000 ML IV SCH (16:24)
[2018-11-05] MEDS: SENNA 8.6 MG TAB PO SCH (21:46)
[2018-11-05] MEDS: DOCUSATE SODIUM 100 MG CAP PO SCH (21:46)
[2018-11-05] MEDS: BISOPROLOL PO SCH (21:47)
[2018-11-05] MEDS: HCTZ PO SCH (21:47)
[2018-11-05] MEDS ORDERED: VANCOMYCIN HCL 1,500 MG in SODIUM CHLORIDE 0.9% 250 ML IV ONE (22:00)
[2018-11-05] MEDS: PIPERACILLIN/TAZOBACTAM 3.375 GM in DEXTROSE 5% 100 ML IV SCH (23:24)
[2018-11-06] MEDS ORDERED: VANCOMYCIN HCL 1,500 MG in SODIUM CHLORIDE 0.9% 500 ML IV SCH (06:00)
[2018-11-06] MEDS: SODIUM CHLORIDE 0.9% 1000ML 1,000 ML IV SCH (06:03)
[2018-11-06] MEDS: PIPERACILLIN/TAZOBACTAM 3.375 GM in DEXTROSE 5% 100 ML IV SCH ×3 (06:04→22:29)
[2018-11-06] MEDS: ACETAMINOPHEN 500 MG TAB PO SCH ×3 (06:04→22:29)
[2018-11-06 06:27] LABS: Hematocrit (blood only) 27.8 % (42-52); Hemoglobin 8.7 g/dL (14.0-18.0); Mean Corpuscular Hgb Conc 31.3 g/dL (32-36); Mean Corpuscular Volume 85.8 fL (80-100); Mean Platelet Volume 8.5 fL (7.4-10.4); Platelet Count 215 K/uL (130-400); RDW Coefficient of Variation 17.6 % (11.5-14.5); RDW Standard Deviation 55.9 fL (36.4-46.3); Red Blood Count 3.24 M/uL (4.7-6.1); White Blood Count 13.78 K/uL (4.8-10.8)
[2018-11-06 07:04] LABS: BUN Creatinine Ratio 15.3 (10-20); Calcium 8.2 mg/dl (8.5-10.1); Creatinine Clr Calc Pharmacy 57.5 ml/min; Est GFR (African American) 63.7; Potassium 3.9 mmol/L (3.5-5.1)
--- NOTE | 2018-11-06 07:16 | Orthopedic Progress Note ---
Date of Service November 06, 2018 Assessment & Plan (1) Infection of total left knee replacement: POD #1 s/p removal TKA implant left knee with placement antibiotic spacer DVT proph with KENYA/SCD/ Eliquis Knee immobilizer while ambulating, can WBAT with walker, can loosen immob in bed, ROM 0-30 as tolerated hemovac x 48 hours ID consulted: Added zosyn in addition to vanco and follow cultures. will repeat blood cultures as well with recent E. coli bsi infection. will need PICC Subjective POD #1 s/p Left Knee Removal TKA Implant with Placement of Antibiotic Spacer(Left) articulated space Review of Systems Constitutional: no fever, no chills and no sweats Respiratory: no cough and no dyspnea Cardiovascular: no chest pain and no dyspnea Gastrointestinal: no abdominal pain, no nausea and no vomiting Physical Exam Physical Exam: Vital Signs Temp Pulse Pulse Resp BP Pulse Ox 11/06/18 03:48 36.5 C 71 16 128/77 94 11/05/18 22:46 36.5 C 79 16 121/68 96 11/05/18 15:39 36.4 C L 78 17 118/73 91 11/05/18 14:26 36.5 C 81 18 141/82 H 91 11/05/18 13:57 76 16 158/92 H 93 11/05/18 13:15 36.5 C 67 16 135/80 98 11/05/18 13:05 67 16 131/80 98 11/05/18 12:55 68 16 114/79 100 11/05/18 12:49 36.0 C L 69 14 133/78 98 11/05/18 08:18 36.5 C 82 20 166/89 H 100 Intake and Output 11/05/18 11/06/18 11/06/18 22:59 06:59 14:59 Intake Total 965 / 3080.000 1115.000 / 3080.00 0 Output Total 576 / 921 305 / 921 Balance 389 / 2159.000 810.000 / 2159.000 Intake: IV 115 / 0383.624 8979.000 / 1930.00 0 Zosyn 3.375 gm In D5 100 ml @ 115 / 230 115 / 230 28.75 mls/hr I V Q8H [facility] Rx#: [id number] Nss 1000ML 1,0 00 ml @ 100 mls/ 1000.000 / 1000.00 0 hr IV .Q10H SC H Rx#:[id number] Oral 850 / 850 Output: Urine 450 / 750 300 / 750 Drain Output 125 / 160 5 / 160 Left Knee Hemo vac 125 / 160 5 / 160 # Bowel Movement s Other: # Unmeasured Voi ds 1 Constitutional: WD/WN, vitals as above no acute distress Musculoskeletal: left lower extremity: NVDI, calf SNT, negative hua sign. DP palpable, able to wiggle toes/ankle movement without difficulty. dressing clean dry and intact. Vital Signs Temp 36.5 C 11/06/18 03:48 Pulse 71 11/06/18 03:48 Resp 16 11/06/18 03:48 BP 128/77 11/06/18 03:48 Pulse Ox 94 11/06/18 03:48 Intake & Output 11/05/18 11/06/18 11/06/18 18:59 06:59 18:59 Intake Total 1115 / 3080.000 1965.000 / 3080.00 0 Output Total 316 / 921 605 / 921 Balance 799 / 2159.000 1360.000 / 2159.00 0 Weight 104.598 kg Intake: IV 815 / 2297.581 4881.000 / 1930.00 0 Lr 1,000 ml @ 15 mls/hr IV . 700 / 700 Q24H [facility] Rx#:[id number] Zosyn 3.375 gm In D5 100 ml @ 115 / 230 115 / 230 28.75 mls/hr I V Q8H [facility] Rx#: [id number] Nss 1000ML 1,0 00 ml @ 100 mls/ 1000.000 / 1000.00 0 hr IV .Q10H SC H Rx#:[id number] IV Perioperative 300 / 300 Oral 850 / 850 Output: Urine 275 / 750 475 / 750 Estimated Blood Loss 10 / 10 Drain Output 30 / 160 130 / 160 Left Knee Hemo vac 30 / 160 130 / 160 # Bowel Movement s Other: # Unmeasured Voi ds 1 Results & Data Vital Signs (Past 12 Hours) Vital Signs Temp Pulse Resp BP Pulse Ox 11/06/18 03:48 36.5 C 71 16 128/77 94 11/05/18 22:46 36.5 C 79 16 121/68 96 Laboratory Results Laboratory Results WBC 13.78 K/uL (4.8-10.8) H 11/06/18 06:09 RBC 3.24 M/uL (4.7-6.1) L 11/06/18 06:09 Hgb 8.7 g/dL (14.0-18.0) L 11/06/18 06:09 Hct 27.8 % (42-52) L 11/06/18 06:09 MCV 85.8 fL (80-100) 11/06/18 06:09 MCH 26.9 pg (25-34) 11/06/18 06:09 MCHC 31.3 g/dL (32-36) L 11/06/18 06:09 RDW Std Deviation 55.9 fL (36.4-46.3) H 11/06/18 06:09 RDW Coeff of Ernesto 17.6 % (11.5-14.5) H 11/06/18 06:09 Plt Count 215 K/uL (130-400) 11/06/18 06:09 MPV 8.5 fL (7.4-10.4) 11/06/18 06:09 Immature Gran % (Auto) 0.9 % 10/31/18 14:55 Neut % (Auto) 67.7 % 10/31/18 14:55 Lymph % (Auto) 15.9 % 10/31/18 14:55 [place] % (Auto) 13.3 % 10/31/18 14:55 Eos % (Auto) 1.9 % 10/31/18 14:55 Baso % (Auto) 0.3 % 10/31/18 14:55 Immature Gran # (Auto) 0.06 K/uL (0.00-0.02) H 10/31/18 14:55 Neut # (Auto) 4.74 K/uL (1.4-6.5) 10/31/18 14:55 Lymph # (Auto) 1.11 K/uL (1.2-3.4) L 10/31/18 14:55 [place] # (Auto) 0.93 K/uL (0.11-0.59) H 10/31/18 14:55 Eos # (Auto) 0.13 K/uL (0-0.5) 10/31/18 14:55 Baso # (Auto) 0.02 K/uL (0-0.2) 10/31/18 14:55 PT 12.2 Seconds (9.0-12.0) H 10/31/18 14:55 INR 1.2 (0.9-1.1) H 10/31/18 14:55 APTT 28.5 Seconds (21.0-31.0) 10/31/18 14:55 PTT Ratio 1.1 10/31/18 14:55 Sodium 139 mmol/L (136-145) 11/06/18 06:09 Potassium 3.9 mmol/L (3.5-5.1) 11/06/18 06:09 Chloride 106 mmol/L (98-107) 11/06/18 06:09 Carbon Dioxide 28 mmol/L (21-32) 11/06/18 06:09 Anion Gap 5.0 (3-11) 11/06/18 06:09 BUN 18 mg/dl (7-18) 11/06/18 06:09 Creatinine 1.19 mg/dl (0.6-1.4) 11/06/18 06:09 Est Cr Clr Drug Dosing 57.5 ml/min 11/06/18 06:09 Est GFR ( Amer) 63.7 11/06/18 06:09 Est GFR (Non-Af Amer) 55.0 11/06/18 06:09 BUN/Creatinine Ratio 15.3 (10-20) 11/06/18 06:09 Glucose 101 mg/dl (70-99) H 11/06/18 06:09 Estimat Average Glucose 117 mg/dl 10/31/18 14:55 Hemoglobin A1c 5.7 % (4.5-5.6) H 10/31/18 14:55 Calcium 8.2 mg/dl (8.5-10.1) L 11/06/18 06:09 Albumin 3.0 gm/dl (3.4-5.0) L 10/31/18 14:55 Urine Color Yellow 10/31/18 Unknown Urine Appearance Clear (Clear) 10/31/18 Unknown Urine pH 6.0 (4.5-7.5) 10/31/18 Unknown Ur Specific [place] 1.015 (1.000-1.030) 10/31/18 Unknown Urine Protein Negative (Negative) 10/31/18 Unknown Urine Glucose (UA) Negative (Negative) 10/31/18 Unknown Urine Ketones Negative (Negative) 10/31/18 Unknown Urine Blood Trace (Negative) H 10/31/18 Unknown Urine Nitrite Negative (Negative) 10/31/18 Unknown Urine Bilirubin Negative (Negative) 10/31/18 Unknown Urine Urobilinogen Negative (Negative) 10/31/18 Unknown Ur Leukocyte Esterase Negative (Negative) 10/31/18 Unknown Urine WBC (Auto) 1-5 /hpf (0-5) 10/31/18 Unknown Urine RBC (Auto) 5-10 /hpf (0-4) H 10/31/18 Unknown U Hyaline Cast (Auto) 1-5 /lpf (0-5) 10/31/18 Unknown U Epithel Cells (Auto) 10-20 /lpf (0-5) H 10/31/18 Unknown Urine Bacteria (Auto) Negative (Negative) 10/31/18 Unknown Blood Type O Positive 10/31/18 14:55 Antibody Screen NEGATIVE 10/31/18 14:55 11/05/18 15:45 Aerobic Blood Culture - Pending Blood Anaerobic Blood Culture - Pending 11/05/18 15:37 Aerobic Blood Culture - Pending Blood Anaerobic Blood Culture - Pending 11/05/18 10:47 Gram Stain - Pending Knee,Left Joint Fluid Culture - Pending Diagnostic Findings XR knee LT 2V routine CLINICAL HISTORY: Surgical Post Op COMPARISON: 11/29/2016 DISCUSSION: Interval removal of tibial prosthetic. Additional cement/antibiotic material has been applied to the proximal tibia. Alignment is anatomic. Expected soft tissue postoperative change IMPRESSION: Postoperative change as noted. Resection or removal of the tibial prosthetic.
--- NOTE | 2018-11-06 07:31 | Anesthesiology Progress Note ---
Date of Service November 06, 2018 Anesthesia Post Procedure Vital Signs Vital Signs: Temp Pulse Pulse Resp BP Pulse Ox 11/06/18 03:48 36.5 C 71 16 128/77 94 11/05/18 22:46 36.5 C 79 16 121/68 96 11/05/18 15:39 36.4 C L 78 17 118/73 91 11/05/18 14:26 36.5 C 81 18 141/82 H 91 11/05/18 13:57 76 16 158/92 H 93 11/05/18 13:15 36.5 C 67 16 135/80 98 11/05/18 13:05 67 16 131/80 98 11/05/18 12:55 68 16 114/79 100 11/05/18 12:49 36.0 C L 69 14 133/78 98 11/05/18 08:18 36.5 C 82 20 166/89 H 100 Notes Mental Status: alert / awake / arousable and participated in evaluation Patient Amnestic to Procedure: Yes Nausea / Vomiting: adequately controlled Pain: adequately controlled Airway Patency, RR, SpO2: stable & adequate BP & HR: stable & adequate Hydration State: stable & adequate Neuraxial Anesthesia: was administered and sensory block resolved Anesthetic Complications: no major complications apparent and Pt Satisfied with anesthetic care
[2018-11-06] MEDS: MULTIVITAMIN TAB PO SCH (08:31)
[2018-11-06] MEDS: TAMSULOSIN HCL 0.4 MG CAP PO SCH (08:31)
[2018-11-06] MEDS: DOCUSATE SODIUM 100 MG CAP PO SCH ×2 (08:31→20:38)
[2018-11-06] MEDS: APIXABAN 5 MG TABLET PO SCH ×2 (08:31→20:39)
[2018-11-06] MEDS ORDERED: VANCOMYCIN HCL 1,000 MG in SODIUM CHLORIDE 0.9% 250 ML IV ONE (09:45)
--- NOTE | 2018-11-06 10:57 | Infectious Disease Progress Nt ---
Date of Service November 06, 2018 Assessment & Plan (1) Infection of total left knee replacement: will continue current abx and follow culture results. suspect will be negative due to prior treatment with cipro. will follow. Subjective pt seen in followup, doing well. OOB to chair, no pain in knee. tolerating abx. blood cultures pending, previous blood cultures (outpt) growing E. 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 no cp, sob, cough,alfredo, no abd pain, no n/v/d, eating well. no gu symptoms currently. remains on vanco and zosyn. wbc increased to 13, creat 1.1 Review of Systems Review of Systems: All systems reviewed & are unremarkable except as noted in HPI & below Physical Exam Constitutional: WD/WN, vitals as above Eyes: PERRL, conjunctivae normal, anicteric sclerae ENMT: external ear and nose normal, oropharynx normal Neck: trachea midline, no thyromegaly normal visual inspection Respiratory: normal respiratory effort, lungs clear to auscultation Cardiovascular: RRR, no murmur, no edema Gastrointestinal (Abdomen): normal bowel sounds, soft, nontender, no hepatosplenomegaly Musculoskeletal: no cyanosis or clubbing, extremities motor strength 5/5 Skin: no rashes, warm and dry Psychiatric: A+Ox3, euthymic affect Results & Data Vital Signs (Past 12 Hours) Vital Signs Temp Pulse Resp BP Pulse Ox 11/06/18 07:34 36.7 C 82 16 153/80 H 96 11/06/18 03:48 36.5 C 71 16 128/77 94 Laboratory Results Microbiology 11/05/18 10:47 Knee,Left Gram Stain - Final PG Care Time/CCT Total # of Minutes Spent Total Time Spent with Patient: Total time spent is greater than 50% in coordination of care (as documented) at patient's floor/unit and/or counseling patient:
[2018-11-06] MEDS: OXYCODONE HCL IR 5 MG TAB (IMMEDIATE RELEASE) PO PRN (15:00)
[2018-11-06] MEDS: SENNA 8.6 MG TAB PO SCH (20:38)
[2018-11-06] MEDS: BISOPROLOL PO SCH (20:39)
[2018-11-06] MEDS: HCTZ PO SCH (20:39)
[2018-11-07] MEDS: VANCOMYCIN HCL 1,250 MG in SODIUM CHLORIDE 0.9% 250 ML IV SCH ×2 (01:39→18:14)
[2018-11-07] MEDS: OXYCODONE HCL IR 5 MG TAB (IMMEDIATE RELEASE) PO PRN ×3 (01:42→20:53)
[2018-11-07] MEDS: ACETAMINOPHEN 500 MG TAB PO SCH ×3 (05:33→21:50)
[2018-11-07] MEDS: PIPERACILLIN/TAZOBACTAM 3.375 GM in DEXTROSE 5% 100 ML IV SCH ×4 (05:33→21:49)
[2018-11-07 06:52] LABS: Basophils # (auto) 0.03 K/uL (0-0.2); Basophils % (auto) 0.3 %; Eosinophils # (auto) 0.05 K/uL (0-0.5); Eosinophils % (auto) 0.5 %; Hematocrit (blood only) 26.7 % (42-52); Hemoglobin 8.4 g/dL (14.0-18.0); Immature Granulocytes # (auto) 0.02 K/uL (0.00-0.02); Immature Granulocytes % (auto) 0.2 %; Lymphocytes # (auto) 1.23 K/uL (1.2-3.4); Lymphocytes % (auto) 11.4 %; Mean Corpuscular Hgb Conc 31.5 g/dL (32-36); Mean Corpuscular Volume 85.6 fL (80-100); Mean Platelet Volume 8.6 fL (7.4-10.4); Monocytes # (auto) 1.23 K/uL (0.11-0.59); Monocytes % (auto) 11.4 %; Neutrophils # (auto) 8.27 K/uL (1.4-6.5); Neutrophils % (auto) 76.2 %; Platelet Count 210 K/uL (130-400); RDW Coefficient of Variation 17.9 % (11.5-14.5); RDW Standard Deviation 56.2 fL (36.4-46.3); Red Blood Count 3.12 M/uL (4.7-6.1); White Blood Count 10.83 K/uL (4.8-10.8)
[2018-11-07 07:27] LABS: Creatinine Clr Calc Pharmacy 50.6 ml/min; Est GFR (African American) 54.7; Est GFR (Non-African American) 47.2
[2018-11-07] MEDS: APIXABAN 5 MG TABLET PO SCH ×2 (08:39→20:48)
[2018-11-07] MEDS: TAMSULOSIN HCL 0.4 MG CAP PO SCH (08:39)
[2018-11-07] MEDS: MULTIVITAMIN TAB PO SCH (08:39)
[2018-11-07] MEDS: DOCUSATE SODIUM 100 MG CAP PO SCH ×2 (08:40→20:48)
--- NOTE | 2018-11-07 09:53 | Orthopedic Progress Note ---
Date of Service November 07, 2018 Assessment & Plan (1) Infection of total left knee replacement: POD #2 s/p removal TKA implant left knee with placement antibiotic spacer DVT proph with KENYA/SCD/ Eliquis Knee immobilizer while ambulating, can WBAT with walker, can loosen immob in bed, ROM 0-30 as tolerated hemovac dc'd Following cultures for now. PICC line ordered. Awaiting final input from infectious disease team for antibiotic choice. Subjective Postop day 2 status post explant of infected TKA with implantation of antibiotic spacer. Patient is currently sitting at this chair at the bedside finishing breakfast. States that the knee has some discomfort this morning but is otherwise fairly well controlled. Breath, chest pain, lightheadedness. No other complaints at this time. Physical Exam Physical Exam: Pravena dressing is clean, dry, intact and functioning. Calves are soft nontender. Neurovascular is intact. Toes are mobile. Results & Data Vital Signs (Past 12 Hours) Vital Signs Temp Pulse Resp BP Pulse Ox 11/07/18 07:02 36.5 C 75 18 158/87 H 94 11/06/18 23:40 36.6 C 77 16 147/89 H 96
--- NOTE | 2018-11-07 13:08 | XRay Report ---
XR chest 1V portable HISTORY: CONFIRMATION OF PICC PLACEMENT XIN COMPARISON: Chest 11/21/2016. FINDINGS: The heart remains enlarged. Tortuous thoracic aorta, unchanged. There are poststernotomy ch anges. A left PICC terminates at the expected location of the SVC. No pneumothorax. No pleural effusi ons. Bibasilar linear densities consistent with subsegmental atelectasis. No evidence for pulmonary e jorden. IMPRESSION: 1. The left PICC terminates at the SVC. 2. Stable cardiomegaly. Electronically signed by: Nikos Wan M.D. 11/07/2018 1:07 PM
[2018-11-07] MEDS ORDERED: VANCOMYCIN TROUGH ONE (13:30)
--- NOTE | 2018-11-07 14:15 | Infectious Disease Progress Nt ---
Date of Service November 07, 2018 Assessment & Plan (1) Infection of total left knee replacement: can continue current abx for now, upon d/c would suggest that he be transitioned back to cipro 500mg po bid x 4 more weeks. Can remove picc prior to d/c. Subjective pt seen in followup, family at bedside. s/p picc today. Remains afebrile. remains on zosyn and vanco, OR cultures negative and final. Blood cultures negative. was on cipro prior to hospital stay for E. coli sepsis. wbc 10. min pain in knee, states only when walking, no cp, sob, cough, alfredo, no abd pain, no n/v/d. spoke with case management pt has little to no insurance coverage for home IV abx. Lives in [facility] and will be not be able to come to [facility] daily. Family at bedside requesting po abx, if able Review of Systems Review of Systems: All systems reviewed & are unremarkable except as noted in HPI & below Physical Exam Constitutional: WD/WN, vitals as above Eyes: PERRL, conjunctivae normal, anicteric sclerae ENMT: external ear and nose normal, oropharynx normal Neck: trachea midline, no thyromegaly normal visual inspection Respiratory: normal respiratory effort, lungs clear to auscultation Cardiovascular: RRR, no murmur, no edema Gastrointestinal (Abdomen): normal bowel sounds, soft, nontender, no hepatosplenomegaly Musculoskeletal: no cyanosis or clubbing, extremities motor strength 5/5 Skin: no rashes, warm and dry knee dressing c/d/i Psychiatric: A+Ox3, euthymic affect Results & Data Vital Signs (Past 12 Hours) Vital Signs Temp Pulse Resp BP Pulse Ox 11/07/18 12:00 36.5 C 75 18 155/82 H 98 11/07/18 07:02 36.5 C 75 18 158/87 H 94 Laboratory Results Microbiology 11/05/18 10:47 Knee,Left Gram Stain - Final 11/05/18 10:47 Knee,Left Joint Fluid Culture - Final No growth 11/05/18 15:45 Blood Aerobic Blood Culture - Preliminary No growth in Aerobic bottle after 24 hours. 11/05/18 15:45 Blood Anaerobic Blood Culture - Preliminary No growth in Anaerobic bottle after 24 hours. 11/05/18 15:37 Blood Aerobic Blood Culture - Preliminary No growth in Aerobic bottle after 24 hours. 11/05/18 15:37 Blood Anaerobic Blood Culture - Preliminary No growth in Anaerobic bottle after 24 hours. PG Care Time/CCT Total # of Minutes Spent Total Time Spent with Patient: Total time spent is greater than 50% in coordination of care (as documented) at patient's floor/unit and/or counseling patient:
[2018-11-07] MEDS: SENNA 8.6 MG TAB PO SCH (20:48)
[2018-11-07] MEDS: BISOPROLOL PO SCH (20:48)
[2018-11-07] MEDS: HCTZ PO SCH (20:48)
[2018-11-08 05:48] LABS: Basophils # (auto) 0.03 K/uL (0-0.2); Basophils % (auto) 0.4 %; Eosinophils # (auto) 0.19 K/uL (0-0.5); Eosinophils % (auto) 2.6 %; Hematocrit (blood only) 25.5 % (42-52); Hemoglobin 7.9 g/dL (14.0-18.0); Immature Granulocytes # (auto) 0.02 K/uL (0.00-0.02); Immature Granulocytes % (auto) 0.3 %; Lymphocytes # (auto) 1.06 K/uL (1.2-3.4); Lymphocytes % (auto) 14.6 %; Mean Corpuscular Volume 86.7 fL (80-100); Mean Platelet Volume 8.4 fL (7.4-10.4); Monocytes # (auto) 1.19 K/uL (0.11-0.59); Monocytes % (auto) 16.4 %; Neutrophils # (auto) 4.78 K/uL (1.4-6.5); Neutrophils % (auto) 65.7 %; Platelet Count 194 K/uL (130-400); RDW Coefficient of Variation 18.1 % (11.5-14.5); RDW Standard Deviation 57.8 fL (36.4-46.3); Red Blood Count 2.94 M/uL (4.7-6.1); White Blood Count 7.27 K/uL (4.8-10.8)
[2018-11-08] MEDS: PIPERACILLIN/TAZOBACTAM 3.375 GM in DEXTROSE 5% 100 ML IV SCH ×3 (05:49→21:48)
[2018-11-08] MEDS: ACETAMINOPHEN 500 MG TAB PO SCH ×3 (05:49→21:47)
[2018-11-08 06:16] LABS: Echinocytes 1+; Est GFR (African American) 55.2; Est GFR (Non-African American) 47.6; Hypochromasia Present
[2018-11-08] MEDS: MULTIVITAMIN TAB PO SCH (08:28)
[2018-11-08] MEDS: DOCUSATE SODIUM 100 MG CAP PO SCH ×2 (08:28→21:47)
[2018-11-08] MEDS: TAMSULOSIN HCL 0.4 MG CAP PO SCH (08:28)
[2018-11-08] MEDS: APIXABAN 5 MG TABLET PO SCH ×2 (08:28→21:47)
--- NOTE | 2018-11-08 08:56 | Orthopedic Progress Note ---
Date of Service November 08, 2018 Assessment & Plan (1) Infection of total left knee replacement: POD #3 s/p removal TKA implant left knee with placement antibiotic spacer DVT proph with KENYA/SCD/ Eliquis Knee immobilizer while ambulating, can WBAT with walker, can loosen immob in bed, ROM 0-30 as tolerated hemovac dc'd Following cultures. Appreciate ID team input. Planning for p.o. Cipro upon discharge Recheck H&H earlier this afternoon. Blood pressures are normal and pulse is regular. If hemoglobin continues to slowly decrease or if he continues to have symptoms, will plan for transfusion. Subjective Postop day 3 status post infected left TKA with implantation of articulated spacer. Patient is sitting up in his chair at the bedside finishing his breakfast. He states that his knee is feeling better overall today. Noticing a little less pain with ambulation. He denies any shortness of breath or chest pain but notes some mild lightheadedness. No other complaints at this time. Hemoglobin was noted to be 7.9 this morning. Physical Exam Physical Exam: Kayla dressing is intact and functioning. Calves are soft nontender. Neurovascular intact. Toes are mobile. Results & Data Vital Signs (Past 12 Hours) Vital Signs Temp Pulse Resp BP Pulse Ox 11/07/ 22:33 36.4 C L 62 16 133/80 97
[2018-11-08] MEDS ORDERED: VANCOMYCIN TROUGH ONE (09:30)
[2018-11-08] MEDS: VANCOMYCIN HCL 1,250 MG in SODIUM CHLORIDE 0.9% 250 ML IV SCH (10:39)
[2018-11-08] MEDS: OXYCODONE HCL IR 5 MG TAB (IMMEDIATE RELEASE) PO PRN ×2 (10:47→21:44)
--- NOTE | 2018-11-08 11:02 | Pharmacy Report ---
Pharmacy Abx Dose Short Note - Date of Service November 08, 2018 - Assessment & Plan Laboratory Tests 11/08/18 09:30 Vancomycin Trough 15.0 Assessment 88 year old M receiving IV Vancomycin and Zosyn for treatment of infection of total left knee replacement Per ID: can continue current abx for now, upon transition back to cipro 500mg po bid x 4 more weeks. Can remove picc prior to d/c. Day # 4 of antimicrobial therapy. Plan Vancomycin * Trough level of 15 mcg/mL is therapeutic * Continue dose of 1250 mg IV every 16 hours * Goal trough level for skin and skin structure infections : 15 to 20 mcg/mL * Further levels will be ordered based on duration of hospital stay Zosyn * 3.375g IV Q8H for CrCl > 30ml/min, extended interval infusion Pharmacy will continue to follow and will adjust dose/frequency as necessary. Thank you.
[2018-11-08] MEDS: SENNA 8.6 MG TAB PO SCH (21:47)
[2018-11-08] MEDS: HCTZ PO SCH (21:47)
[2018-11-08] MEDS: BISOPROLOL PO SCH (21:47)
[2018-11-09] MEDS: VANCOMYCIN HCL 1,250 MG in SODIUM CHLORIDE 0.9% 250 ML IV SCH (02:11)
[2018-11-09] MEDS: PIPERACILLIN/TAZOBACTAM 3.375 GM in DEXTROSE 5% 100 ML IV SCH ×2 (05:05→13:36)
[2018-11-09] MEDS: ACETAMINOPHEN 500 MG TAB PO SCH ×2 (05:08→13:37)
[2018-11-09] MEDS: OXYCODONE HCL IR 5 MG TAB (IMMEDIATE RELEASE) PO PRN ×3 (05:23→15:06)
[2018-11-09] MEDS: DOCUSATE SODIUM 100 MG CAP PO SCH (09:19)
[2018-11-09] MEDS: APIXABAN 5 MG TABLET PO SCH (09:20)
[2018-11-09] MEDS: TAMSULOSIN HCL 0.4 MG CAP PO SCH (09:20)
[2018-11-09] MEDS: MULTIVITAMIN TAB PO SCH (09:20)
--- NOTE | 2018-11-09 11:36 | Orthopedic Progress Note ---
Date of Service November 09, 2018 Assessment & Plan (1) Infection of total left knee replacement: POD #4 s/p removal TKA implant left knee with placement antibiotic spacer DVT proph with KENYA/SCD/ Eliquis Knee immobilizer while ambulating, can WBAT with walker, can loosen immob in bed, ROM 0-30 as tolerated hemovac dc'd Planning for p.o. Cipro upon discharge home today Subjective Postop day 4 status post infected left TKA with implantation of articulated spacer. Patient is sitting up in his chair at the bedside. He states that his knee is feeling better overall today. Noticing a little less pain with ambulation. He denies any shortness of breath or chest pain or lightheadness. No other complaints at this time. Hemoglobin was noted to be 8.1 this morning. Physical Exam Physical Exam: Toes mobile, NVI. Calves soft, non tender. Prevena in place. Knee immobilizer in place Results & Data Vital Signs (Past 12 Hours) Vital Signs Temp Pulse Resp BP Pulse Ox 11/09/18 06:39 36.5 C 75 18 142/88 H 96
--- NOTE | 2018-11-10 19:59 | Discharge Summary ---
Date of Service date of Admission: November 05, 2018 date of discharge: 11/09/18 Admission HPI Per Admitting Provider Mr Christensen is an 88 year old male who is here for a follow up of left knee pain, presents for pre-op evaluation prior to left knee arthrotomy, removal of TKA implant and placement of antibiotic spacer. Mr Christensen underwent a left TKA on 11-29-16 and initially did well except for some generalized stiffness in his knee. After about 9 months he was having pain along with his stiffness without any known injuries. Xrays at that time did not show any signs of loosening or acute findings. He was followed closely and after discussion was decided to proceed with left knee arthroscopy with excision of hypertrophic scar on 11-28-17. At that time, intra-op cultures and gram stain were performed, and was negative for any organisms and no growth. Most recently he presented to our office end of September with recurrent knee effusion, since his synovial fluid was negative for organisms and negative cultures from November, it was felt a bone scan was necessary to rule out aseptic loosening or infection and aspirated was held at that time due to previous negative cultures. From the time of that office visit until now, patient had been admitted to [facility] for UTI sepsis with possible left knee joint infection. He received IV Abx while there and was discharged on 10/28/18 on PO Cipro. He presented on 10/30/18 for follow up of that discharge and bone scan results. Bone scan results showing increased uptake concerning for joint infection. At that visit synovasure testing was performed and those results are currently pending. his Bone scan does show loosening of the tibial component with increased uptake concerning for infection. At this point, it was decided to proceed with removal of TKA implant and placement of antibiotic spacer. Principal Diagnosis infected left total knee replacement Discharge Exam Vital Signs Temp 36.5 C 11/09/18 14:37 Pulse 81 11/09/18 14:37 Resp 18 11/09/18 14:37 BP 142/88 H 11/09/18 14:37 Pulse Ox 96 11/09/18 14:37 Constitutional WD/WN, vitals as above no acute distress Musculoskeletal left knee: NVDI, calf SNT, negative hua sign. DP palpable, able to wiggle toes/ankle movement without difficulty. Prevena dressing clean dry and intact. expected post-operative bruising noted. Discharge Data Allergies Allergy/AdvReac Type Severity Reaction Status Date / Time Juuddcw-Bca-Nmf Reductase AdvReac Unknown MUSCLE Verified 11/05/18 07:48 Inhibitor ACHES Consultations 11/05/18 13:32 Consult Case Management - Discharge Planning Routine 11/05/18 13:38 Consult Infectious Diseases Routine Procedures Performed Operation Date: 11/05/18 09:55 Actual Procedures p Left Total Knee Arthroplasty Removal of Implant with Placement of Antibiotic Spacer(Left) - Bill Coburn DO Ordered Studies 11/05/18 05:00 US - OR guided needle placemen Routine Hospital Course (1) Infection of total left knee replacement: POD #4 s/p removal TKA implant left knee with placement antibiotic spacer DVT proph with KENYA/SCD/ Eliquis Knee immobilizer while ambulating, can WBAT with walker, can loosen immob in bed, ROM 0-30 as tolerated hemovac dc'd ID consulted and recommends Cipro upon discharge. F/u in the office in 2 weeks. Total Time Total Time Spent Total Time Spent (In Minutes): 20 Total Time Includes: Examination of the Patient, Discharge Planning and Medication Reconciliation Discharge Plan Discharge Items Patient Disposition: Home - Home Health Services Reason For Visit: Left Knee Infection of Implant Discharge Diagnosis: Left TKA Infection Discharge Goals: Decrease discomfort and Improve function Activity: Per 'Additional Instructions' section Weightbearing: Left weightbearing Weightbearing Comment: as tolerated with walker Non-emergency contact: Surgeon Call non-emergency contact if: your pain is not controlled, your temperature is above 101.5, your wound has increased redness and your wound has increased drainage Follow-up/Referrals: Bill Israel, D.O. [Primary Care Provider] - Diet: Regular Addtl Provider Instructions: ACTIVITY RECOMMENDATIONS: SELF CARE INSTRUCTIONS AFTER TOTAL KNEE REPLACEMENT A. You may need to continue a physical therapy program after discharge from the hospital. There are several options available to you. Your doctor will assist you in selecting the best one for you. 1. An out-patient facility 2 to 3 times a week for therapy or home therapy. 2. Continue working on all exercises taught to you in the hospital. Your goals should be to increase bending of your knee to 90 degrees and beyond and to fully straighten your knee. B. You may progress at your own pace from walking with a walker or crutches to a cane; then to no assistive devices. C. Make walking a part of your daily routine. Be up as much as comfortable with rest periods throughout the day. Rest with leg elevation is very important. Use the ice wrap frequently for the first 3-4 weeks. D. There are no restrictions on activities. You may ride in a car, shop, participate in analog ic design engineer and all social activities. E. Wear the long elastic stockings (KENYA hose) 20 hours a day for 2 weeks after surgery. They can be removed several times a day for laundering and for a bath. F. You may shower, no tub baths until cleared by your doctor. SPECIAL CARE INSTRUCTIONS: VERY IMPORTANT TO READ AND REVIEW A. There are a few signs you need to watch for after you are home. Call [facility] if you notice any of the followin. Increased severe knee pain. Some pain is expected especially when you exercise. 2. Increased swelling in your leg or knee; pain or swelling of the calf muscle in either lower leg. 3. Any fluid drainage from the incision. 4. Shortness of breath or chest pain. B. Please call [facility] at if you have any concerns or questions about your operation or recovery. The doctor or his nurse will return your call promptly. C. You must take antibiotics before dental work, bladder, bowel or other surgery. Your doctor will provide you with a permanent care to carry describing this precaution. IMPORTANT: * REMEMBER TO TAKE ASPIRIN, 81 MG, TWICE DAILY FOR 4 WEEKS UNLESS OTHERWISE DIRECTED. THIS IS YOUR BLOOD THINNER. * HIGH RISK PATIENTS MAY BE PRESCRIBED A STRONGER BLOOD THINNER. THIS WILL BE PROVIDED AT DISCHARGE. * CALL IF INCREASED PAIN, REDNESS, DRAINAGE OR FEVER GREATER THAT 101. * WEAR KENYA HOSE 20 HOURS PER DAY FOR 2 WEEKS. * Prevena- This is a large suction dressing covering your incision. This will help pull any excess drainage from the wound and allow your incision to heal properly. You may shower with this if you can keep the unit outside of the shower. If any bleeding or leakage is noted please call your doctor's office. This will remain on your incision for 7 days and then should be removed. This can be done yourself or by the home nursing staff if applicable. The entire unit is disposable once removed. Once removed, keep incision clean and dry. If redness or drainage is noted, please call your surgeon. . FOLLOW UP VISIT: If appointment is not already scheduled: Please call [facility] to make a follow-up appointment for 2 weeks after your surgery at . Prescriptions: New acetaminophen [Tylenol Extra Strength] 500 mg Tablet 1,000 mg PO Q8 14 Days Qty: 84 RF: 0 oxycodone 5 mg Tablet 5 mg PO Q6H PRN (Reason: pain) Qty: 30 RF: 0 sennosides [Senokot] 8.6 mg Tablet 17.2 mg PO HS Qty: 30 RF: 0 ciprofloxacin HCl 500 mg tablet 500 mg PO Q12H 28 Days Qty: 56 RF: 0 Continued bisoprolol-hydrochlorothiazide 10-6.25 mg Tablet 1 tab PO QAM RF: 0 nitroglycerin [Nitrostat] 0.4 mg Tablet, Sublingual 0.4 mg Sublingual UD PRN (Reason: Pain) RF: 0 furosemide 20 mg Tablet 50 mg PO QAM RF: 0 Eliquis 5 mg Tablet 5 mg PO BID RF: 0 coQ10 (ubiquinol) 200 mg Capsule 200 mg PO QAM RF: 0 tamsulosin [Flomax] 0.4 mg Capsule 0.4 mg PO QAM RF: 0 Discontinued hydrocodone-acetaminophen [[place]] 5-325 mg tablet 1 - 2 tab PO Q6H MDD 6 tabs in 24 hours PRN (Reason: pain) Qty: 30 RF: 0 Cipro 1 dose PO UD RF: 0 Stand-Alone Forms: [facility], [facility]/Other Patient Handouts: Surgery Prevent DVT After Discharge Orders: Discharge Order (Routine); Ordered 11/09/18 Ordered By: Estefany Bonilla Admission Data Admit Date/Time: 11/05/18 12:48 Attending Provider: Bill Coburn Admit Provider: Bill Coburn Primary Care Provider: Bill Israel Other Providers: Ricci Lopez Service: Surgical Services Other Interventions: Discharge Summary Assessment (RN) Last Done: 11/09/18 14:37 DC Date/Time DO NOT enter until pt leaves facility: 11/09/18 16:19
== END 2018-11-09 16:19 | disposition home health service (06) | DRG 464 ==
LOC: ASU 07:10 → 3E 12:48

== ENCOUNTER 2018-12-31 10:04 | Inpatient (IN) ==
[2018-12-16 15:32] LABS: Basophils # (auto) 0.02 K/uL (0-0.2); Basophils % (auto) 0.4 %; Eosinophils # (auto) 0.17 K/uL (0-0.5); Eosinophils % (auto) 3.8 %; Hematocrit (blood only) 32.7 % (42-52); Hemoglobin 9.8 g/dL (14.0-18.0); Lymphocytes # (auto) 0.77 K/uL (1.2-3.4); Lymphocytes % (auto) 17.3 %; Mean Corpuscular Hemoglobin 25.1 pg (25-34); Mean Corpuscular Volume 83.8 fL (80-100); Mean Platelet Volume 9.1 fL (7.4-10.4); Monocytes # (auto) 0.66 K/uL (0.11-0.59); Monocytes % (auto) 14.8 %; Neutrophils # (auto) 2.83 K/uL (1.4-6.5); Neutrophils % (auto) 63.7 %; Platelet Count 189 K/uL (130-400); RDW Standard Deviation 52.4 fL (36.4-46.3); White Blood Count 4.45 K/uL (4.8-10.8)
[2018-12-16 15:39] LABS: Appearance Urine Clear (Clear); Bacteria Urine Automated Negative (Negative); Bilirubin Urine Negative (Negative); Blood Urine Trace (Negative); Color Urine Yellow; Glucose Urine UA Negative (Negative); Ketones Urine Negative (Negative); Leukocyte Esterase Urine Negative (Negative); Nitrite Urine Negative (Negative); Protein Urine Trace (Negative); Specific Gravity Urine 1.019 (1.000-1.030); Urobilinogen Urine Negative (Negative); pH Urine 6.5 (4.5-7.5)
[2018-12-16 16:10] LABS: Albumin Level 3.3 gm/dl (3.4-5.0); BUN Creatinine Ratio 23.7 (10-20); Blood Urea Nitrogen 27 mg/dl (7-18); C Reactive Protein 1.39 mg/dl (0-0.29); Calcium 9.2 mg/dl (8.5-10.1); Carbon Dioxide 29 mmol/L (21-32); Chloride 106 mmol/L (98-107); Est GFR (African American) 68.6; Est GFR (Non-African American) 59.2; Glucose 122 mg/dl (70-99); Potassium 3.2 mmol/L (3.5-5.1); Sodium 142 mmol/L (136-145)
--- NOTE | 2018-12-19 14:10 | Anesthesiology Consultation ---
Date of Service December 19, 2018 Assessment & Plan (1) Encounter for pre-operative examination: Chart Review Chart Review: Acceptable Risk for Surgery and Patient NOT seen in Pre Admission Testing Will need to ensure patient has stopped eliquis if SAB is desired. Consults Requested none Will send a note to PCM regarding hypokalemia. History Surgery Operation Date: 12/31/18 14:40 Proposed Procedures p Left Total Knee Revision with Removal of Antibiotic Spacer - Bill Coburn DO Height/Weight Height: 6 ft 2 in Weight: 99.79 kg Allergies Allergy/AdvReac Type Severity Reaction Status Date / Time Rolqdon-Cen-Eub Reductase AdvReac Unknown MUSCLE Verified 12/18/18 12:55 Inhibitor ACHES Medications Home Medications Medication Instructions Recorded Confirmed Last Taken Eliquis 5 mg PO BID 11/21/17 12/18/18 11/01/18 20:00 bisoprolol-hydrochlorothiazide 1 tab PO QPM 11/21/17 12/18/18 11/05/18 04:30 furosemide 40 mg PO QAM 11/21/17 12/18/18 11/04/18 08:00 nitroglycerin [Nitrostat] 0.4 mg SUBLINGUAL UD PRN 11/21/17 12/18/18 Unknown tamsulosin [Flomax] 0.4 mg PO QAM 10/31/18 12/18/18 11/04/18 08:00 oxycodone 5 mg PO Q6H PRN #30 tab 11/08/18 12/18/18 Unknown sennosides [Senokot] 17.2 mg PO UD PRN 12/18/18 12/18/18 Unknown Past Medical History Medical History History of sepsis OCT 2018- LEFT KNEE - FLUID COLLECTED FOR STUDY 12/17/18 Atrial fibrillation chronic, on eliquis DX FEW YRS AGO, NO CARDIOVERSION BPH (benign prostatic hyperplasia) Chronic systolic heart failure EF 40% 10/24/17 Coronary artery disease s/p CABG () s/p cardiac stents x 3 total (most recent 2009) Hyperlipidemia Hypertension Ischemic cardiomyopathy Osteoarthritis Past Family History Family History Son Family history of cancer Past Surgical History Surgical History History of left knee surgery FOR INFECTION OF LEFT KNEE. 10/2018. SAB with block and sedation. H/O cardiac catheterization 2001: Xience to mid LAD 2007: Prox RCA 2010: mid PDA History of arthroscopy of left knee 11/28/17: LMA#5 at [facility] History of colonoscopy History of coronary artery bypass graft CABG x4 () History of detached retina repair RIGHT History of esophagogastroduodenoscopy (EGD) History of tonsillectomy History of tooth extraction History of total knee replacement R/L Social History Smoking Status: Never smoker Do You Dip or Chew Tobacco: No Hx Alcohol Use: No Hx Substance Use: No substance use type: does not use Testing Laboratory Results 12/16/18 14:40 12/16/18 14:40 Urine Color Yellow 12/16/18 14:59 Urine Appearance Clear (Clear) 12/16/18 14:59 Urine pH 6.5 (4.5-7.5) 12/16/18 14:59 Ur Specific Heth 1.019 (1.000-1.030) 12/16/18 14:59 Urine Protein Trace (Negative) H 12/16/18 14:59 Urine Glucose (UA) Negative (Negative) 12/16/18 14:59 Urine Ketones Negative (Negative) 12/16/18 14:59 Urine Nitrite Negative (Negative) 12/16/18 14:59 Ur Leukocyte Esterase Negative (Negative) 12/16/18 14:59 Urine WBC (Auto) 1-5 /hpf (0-5) 12/16/18 14:59 Urine RBC (Auto) 5-10 /hpf (0-4) H 12/16/18 14:59 U Hyaline Cast (Auto) 1-5 /lpf (0-5) 12/16/18 14:59 U Epithel Cells (Auto) 10-20 /lpf (0-5) H 12/16/18 14:59 Urine Bacteria (Auto) Negative (Negative) 12/16/18 14:59 Blood Type O Positive 12/16/18 14:40 Antibody Screen NEGATIVE 12/16/18 14:40 Electrocardiogram Date: 07/12/18 Findings: + AFIB @ (Nonspecific QRS widening. ) Chest X-Ray Date: 11/07/18 XR chest 1V portable HISTORY: CONFIRMATION OF PICC PLACEMENT XIN COMPARISON: Chest 11/21/2016. FINDINGS: The heart remains enlarged. Tortuous thoracic aorta, unchanged. There are poststernotomy changes. A left PICC terminates at the expected location of the SVC. No pneumothorax. No pleural effusions. Bibasilar linear densities consistent with subsegmental atelectasis. No evidence for pulmonary edema. IMPRESSION: 1. The left PICC terminates at the SVC. 2. Stable cardiomegaly.
--- NOTE | 2018-12-28 20:41 | History & Physical Report ---
"Date of Service December 28, 2018 date of surgery: 12-31-18 Assessment & Plan (1) Infection of total left knee replacement: Further care discussed with Wale and at this point in time is ready to proceed with removal of antibiotic spacer and revision left total knee replacement at [facility]. he has completed his course of PO Cipro and has a negative aspiration since his completion. Plan on discharge will be home with home health physical therapy. DVT prophalaxis with TEDs, SCDs and will also resume his normal Eliquis post-op. Patient will have follow up appointment in our office two weeks post op for staple removal and re-evaluation. Patient otherwise has no other questions or concerns. History of Present Illness Chief Complaint: left knee pain Primary Care Provider: Bill Israel Mr Christensen is an 88 year old male who is here for a follow up of left knee pain, presents for pre-op evaluation prior to left knee removal of antibiotic spacer and revision left total knee replacement at [facility]. He recently underwent removal of TKA and placement of antibiotic spacer in October 2018. He tolerated the procedure well and was discharged on PO Cipro and has recently completed his course. He followed up with Dr irizarry on 12/16/18 and underwent left knee aspiration which had no organisms on gram stain and negative cultures. His initial history was that he underwent a left TKA on 11-29-16 and initially did well except for some generalized stiffness in his knee. After about 9 months he was having pain along with his stiffness without any known injuries. It was then decided to proceed with left knee arthroscopy with excision of hypertrophic scar on 11-28-17. At that time, intra-op cultures and gram stain were performed, and was negative for any organisms and no growth. After that, in September 2018 he presented to our office with recurrent knee effusion, since his synovial fluid was negative for organisms and negative cultures from November, it was felt a bone scan was necessary to rule out aseptic loosening or infection and aspirated was held at that time due to previous negative cultures. Bone scan results showing increased uptake concerning for joint infection. At that visit synovasure testing was performed and was felt that patient would need removal of TKA and placement of Abx spacer. Subsequently underwent removal of TKA, has completed course of Abx and is now ready for revision TKA. Allergies Allergy/AdvReac Type Severity Reaction Status Date / Time Wykhxei-Psp-Nju Reductase AdvReac Unknown MUSCLE Verified 12/18/18 12:55 Inhibitor ACHES Home Medications Home Medications Medication Instructions Recorded Confirmed Type Eliquis 5 mg PO BID 11/21/17 12/18/18 History bisoprolol-hydrochlorothiazide 1 tab PO QPM 11/21/17 12/18/18 History furosemide 40 mg PO QAM 11/21/17 12/18/18 History nitroglycerin [Nitrostat] 0.4 mg SUBLINGUAL UD PRN 11/21/17 12/18/18 History tamsulosin [Flomax] 0.4 mg PO QAM 10/31/18 12/18/18 History oxycodone 5 mg PO Q6H PRN #30 tab 11/08/18 12/18/18 Rx sennosides [Senokot] 17.2 mg PO UD PRN 12/18/18 12/18/18 History Past Med/Surg History Medical History Atrial fibrillation chronic, on eliquis DX FEW YRS AGO, NO CARDIOVERSION BPH (benign prostatic hyperplasia) Chronic systolic heart failure EF 40% 10/24/17 Coronary artery disease s/p CABG () s/p cardiac stents x 3 total (most recent 2009) History of sepsis OCT 2018- LEFT KNEE - FLUID COLLECTED FOR STUDY 12/17/18 Hyperlipidemia Hypertension Ischemic cardiomyopathy Osteoarthritis Surgical History H/O cardiac catheterization 2001: Xience to mid LAD 2007: Prox RCA 2010: mid PDA History of arthroscopy of left knee 11/28/17: LMA#5 at [facility] History of colonoscopy History of coronary artery bypass graft CABG x4 () History of detached retina repair RIGHT History of esophagogastroduodenoscopy (EGD) History of left knee surgery FOR INFECTION OF LEFT KNEE. 10/2018. SAB with block and sedation. History of tonsillectomy History of tooth extraction History of total knee replacement R/L Family History Son Family history of cancer Social History Preferred Language: Spanish Communication Ability: Effective Director Strategy Required: No Beliefs That Will Affect Care: None marital status: Current Living Situation: Spouse Feels Safe at Home: Yes Smoking Status: Never smoker Second Hand Exposure: No ; Hx Alcohol Use: No Hx Substance Use: No Review of Systems Review of Systems: All systems reviewed & are unremarkable except as noted in HPI & below Constitutional: no fever, no chills and no sweats Respiratory: no cough and no dyspnea Cardiovascular: no chest pain, no dyspnea and no orthopnea Gastrointestinal: no abdominal pain, no nausea and no vomiting Musculoskeletal: as per Subjective / HPI Physical Exam Physical Exam: Ht: 6ft 2in Wt: 99.79kg BP: 128/88 Pulse: 90 Constitutional: WD/WN, vitals as above no acute distress Respiratory: normal respiratory effort, lungs clear to auscultation no respiratory distress, no labored breathing and does not use accessory muscles Cardiovascular: Rate/Rhythm: + irregularly irregular Gastrointestinal (Abdomen): normal bowel sounds, soft, nontender, no hepatosplenomegaly Musculoskeletal: left knee: well healed surgical incision, mild effusion, no erythema or warmth. calf soft non tender. neurovascular status distally intact. DP +2. negative hua sign. gentle passive and active ROM no discomfort, currently has full extension and active flexion to 90 degrees. Results & Data Laboratory Results Laboratory Results WBC 4.45 K/uL (4.8-10.8) L 12/16/18 14:40 RBC 3.90 M/uL (4.7-6.1) L 12/16/18 14:40 Hgb 9.8 g/dL (14.0-18.0) L 12/16/18 14:40 Hct 32.7 % (42-52) L 12/16/18 14:40 MCV 83.8 fL (80-100) 12/16/18 14:40 MCH 25.1 pg (25-34) 12/16/18 14:40 MCHC 30.0 g/dL (32-36) L 12/16/18 14:40 RDW Std Deviation 52.4 fL (36.4-46.3) H 12/16/18 14:40 RDW Coeff of Ernesto 17.0 % (11.5-14.5) H 12/16/18 14:40 Plt Count 189 K/uL (130-400) 12/16/18 14:40 MPV 9.1 fL (7.4-10.4) 12/16/18 14:40 Immature Gran % (Auto) 0.0 % 12/16/18 14:40 Neut % (Auto) 63.7 % 12/16/18 14:40 Lymph % (Auto) 17.3 % 12/16/18 14:40 [place] % (Auto) 14.8 % 12/16/18 14:40 Eos % (Auto) 3.8 % 12/16/18 14:40 Baso % (Auto) 0.4 % 12/16/18 14:40 Immature Gran # (Auto) 0.00 K/uL (0.00-0.02) 12/16/18 14:40 Neut # (Auto) 2.83 K/uL (1.4-6.5) 12/16/18 14:40 Lymph # (Auto) 0.77 K/uL (1.2-3.4) L 12/16/18 14:40 [place] # (Auto) 0.66 K/uL (0.11-0.59) H 12/16/18 14:40 Eos # (Auto) 0.17 K/uL (0-0.5) 12/16/18 14:40 Baso # (Auto) 0.02 K/uL (0-0.2) 12/16/18 14:40 ESR 69 mm/hr (0-14) H 12/16/18 14:40 Sodium 142 mmol/L (136-145) 12/16/18 14:40 Potassium 3.2 mmol/L (3.5-5.1) L 12/16/18 14:40 Chloride 106 mmol/L (98-107) 12/16/18 14:40 Carbon Dioxide 29 mmol/L (21-32) 12/16/18 14:40 Anion Gap 7.0 (3-11) 12/16/18 14:40 BUN 27 mg/dl (7-18) H 12/16/18 14:40 Creatinine 1.12 mg/dl (0.6-1.4) 12/16/18 14:40 Est GFR ( Amer) 68.6 12/16/18 14:40 Est GFR (Non-Af Amer) 59.2 12/16/18 14:40 BUN/Creatinine Ratio 23.7 (10-20) H 12/16/18 14:40 Glucose 122 mg/dl (70-99) H 12/16/18 14:40 Calcium 9.2 mg/dl (8.5-10.1) 12/16/18 14:40 C-Reactive Protein 1.39 mg/dl (0-0.29) H 12/16/18 14:40 Albumin 3.3 gm/dl (3.4-5.0) L 12/16/18 14:40 Urine Color Yellow 12/16/18 14:59 Urine Appearance Clear (Clear) 12/16/18 14:59 Urine pH 6.5 (4.5-7.5) 12/16/18 14:59 Ur Specific [place] 1.019 (1.000-1.030) 12/16/18 14:59 Urine Protein Trace (Negative) H 12/16/18 14:59 Urine Glucose (UA) Negative (Negative) 12/16/18 14:59 Urine Ketones Negative (Negative) 12/16/18 14:59 Urine Blood Trace (Negative) H 12/16/18 14:59 Urine Nitrite Negative (Negative) 12/16/18 14:59 Urine Bilirubin Negative (Negative) 12/16/18 14:59 Urine Urobilinogen Negative (Negative) 12/16/18 14:59 Ur Leukocyte Esterase Negative (Negative) 12/16/18 14:59 Urine WBC (Auto) 1-5 /hpf (0-5) 12/16/18 14:59 Urine RBC (Auto) 5-10 /hpf (0-4) H 12/16/18 14:59 U Hyaline Cast (Auto) 1-5 /lpf (0-5) 12/16/18 14:59 U Epithel Cells (Auto) 10-20 /lpf (0-5) H 12/16/18 14:59 Urine Bacteria (Auto) Negative (Negative) 12/16/18 14:59 Ethyl Alcohol mg/dL Cancelled 12/16/18 14:40 Blood Type O Positive 12/16/18 14:40 Antibody Screen NEGATIVE 12/16/18 14:40 Spec: [id number] Collected: 12/16/18-131 Received: 12/16/18-[address]: Bill Irizarry,D.O. Source: Knee,Left OV Order: Ordered: Joint Fld Cu/Sm Procedure Result Verified Site Gram Stain Final 12/17/18 Gram Stain Result Moderate Polys No Organisms Seen Joint Fluid/Space Culture Final 12/18/18 No growth Spec : [id number] Collected: 12/16/18 Received: 12/16/[address]: Bill Irizarry D.OJay Jay Ordered: Syn, CC/Diff Queries: Specimen Site: Knee Test Result Flag Reference Site Syn Source | KNEE | | | Syn Color | RED | | | Syn Appear | BLOODY | | | Syn WBC (A) | 2280 | H | 0-200 /uL | Syn RBC (A) | [id number] | | /uL | Synovial Poly WBC | 88.7 | | % | Synovial [place] WBC | 11.3 | | % |"
[~2018-12-31 10:04] MED LIST changes: -BUPIVACAINE 0.25% 30 ML VIAL ONE; +LIDOCAINE HCL 2% 2 ML VIAL/AMP(20MG/ML) INFIL ONE; +LR 15ML/HR IV SCH; -LR 500ML BOLUS, THEN 15ML/HR IV SCH; +MIDAZOLAM HCL 1 MG/ML 2ML VIAL ONE; +MISSING PHYSICIAN SIGNATURE ON ORDER SCH; +PREGABALIN 75 MG CAP PO SCH; +PROPOFOL IV EMULSION 10 MG/ML 20 ML VIAL IV ONE; +ROPIVACAINE 0.5% HCL/PF 150 MG, BUPIVACAINE 0.5% MPF 30 ML, EPINEPHrine 30MG/30ML (OR U... INFIL SCH; -ROPIVACAINE 0.5% HCL/PF 150 MG, BUPIVACAINE 0.5% MPF 30 ML, EPINEPHrine 30MG/30ML (OR U... INSTIL SCH; +TRANEXAMIC ACID 1,000 MG **IV Intra-op IV SCH; +TRANEXAMIC ACID 1,000 MG **IV Pre-op IV SCH; +ePHEDrine sulfate 50 MG/ML SYR ONE; +fentaNYL citrate 100 MCG/2 ML VIAL ONE
[2018-12-31 10:52] LABS: BUN Creatinine Ratio 27.5 (10-20); Calcium 9.7 mg/dl (8.5-10.1); Creatinine Clr Calc Pharmacy 54.9 ml/min; Est GFR (African American) 61.8; Est GFR (Non-African American) 53.4; Potassium 3.4 mmol/L (3.5-5.1)
--- NOTE | 2018-12-31 11:36 | History & Physical Bridge Note ---
Date of Service December 31, 2018 History & Physical Bridge Note I have examined the patient, reviewed the History & Physical and in the interval since the performance of the History & Physical I have noted the following changes of clinical significance: no changes noted
[2018-12-31] MEDS ORDERED: ATROPINE SULFATE 0.1 MG/ML 10ML SYR IV PRN (12:01)
[2018-12-31] MEDS ORDERED: fentaNYL citrate 100 MCG/2 ML VIAL IV PRN (12:01)
[2018-12-31] MEDS ORDERED: ONDANSETRON INJ 2 MG/ML 2 ML VIAL IV PRN ×2 (12:01→17:34)
[2018-12-31] MEDS ORDERED: ePHEDrine sulfate 50 MG/ML AMP IV PRN (12:01)
[2018-12-31] MEDS ORDERED: BACITRACIN INJ 50,000 UNIT VIAL ONE (12:16)
[2018-12-31] MEDS ORDERED: Nursing to Pharmacy Communication ONE (12:50)
[2018-12-31] MEDS ORDERED: PROPOFOL IV EMULSION 10 MG/ML 20 ML VIAL IV ONE ×2 (14:28→15:35)
--- NOTE | 2018-12-31 15:30 | Operative Report ---
Post Operative Report Pre & Post Diagnosis Operation Date: 12/31/18 13:05 Pre-Op Diagnosis: Infection of total left knee replacement Post-Op Diagnosis: Infection of total left knee replacement I personally identified the patient: Yes Procedure Operation Date: 12/31/18 13:05 Actual Procedures p Left Total Knee Revision with Removal of Antibiotic Spacer(Left) revision left total knee arthroplasty 2 lesion size 8 femur 18 mm x 160 mm stem 4 mm offset at 8:00 with a 5 mm medial distal augment tibia size 5 spacer 13 high flex 15 mm x 160 stem 0 mm offset 35 mm patella- Bill Coburn DO Surgeon Bill Coburn DO Wind Site Manager Clemente COLÓN Estimated Blood Loss 10 Findings Consistent with Post-Op Diagnosis Patient presents after having had an infection of his left total knee arthroplasty with removal of the implant and placement of antibiotic articulating spacer with antibiotics presents after having had a aspiration done with NovaSure negative alpha defense and is negative cultures negative Gram stain intraoperative Gram stain revealed no organisms intraoperative frozen sections of distal femoral interface revealed no acute inflammation less than 5 white cells per high-power field proximal tibia revealed no acute inflammation less than 5 white cells per high-power field there is no visual sign of any type of infection intraoperative Gram stain was also performed there was no organisms the implants were removed Specimens Bone cartilage explant of articulated spacer Drains Medium bore Hemovac Complications none Disposition Accompanied Patient To Recovery: No Disposition: Recovery Room Indications Patient presents after having had his left total knee implant removed and placement of an antibiotic impregnated antibiotic spacer articulated type for a clearance of infection infection was noted to be cleared via preoperative aspiration with Synovasure and Gram stain Description of Procedure After initiation of general anesthesia patient had already been identified the left lotion was socially prepped and draped utilizing an anterior incision over the region of the previous incision dissection was carried down to the extensor mechanism medial parapatellar incision was opened in the region of the previous incision the patella was subluxed lateralward's medial lateral gutter synovecto mies were performed in an open fashion the distal femoral implant was removed via a series of orders chisels osteotomes and a Ultra-Drive the bone plug in the top proximal tibia was also removed with an Ultra-Drive and multiple orders chisels after removal of all cement and debris with removal of all implants the distal femur and proximal tibia was then subsequently prepared the proximal femur was then reamed to a size 18 mm gave excellent fill a size 8 femur with a 5 mm distal medial augment 18 x 160 stem 4 mm offset set at 8:00 gave excellent recreation of the distal femoral anatomy the proximal tibia was then evaluated and large intramedullary reamer to a size 15 size 5 tibia was placed with a 0 offset and a 15 x 160 mm stem was used in the trial a size 13 mm high flex poly- was placed patient had full extension excellent stability in both flexion extension mid flexion patellar button was removed patella was revised after removal of scar tissue lateral gutter excellent patellar tracking was noted the wound was then thoroughly irrigated with 3 L of sterile saline solution with pulse of VAC a versa jet was also used on synovium for removal of all debris and any synovial particulate debris after use of the versa jet and thorough irrigation the final components were then subsequent brought on the field the tibia was cemented first the distal femur was next cemented the poly-was placed the patella was then cemented excellent stability was noted the wound having been thoroughly irrigated debridement lavage no particular matter debris was removed the medial proptosis closed with #1 Vicryl as well as #2 Ethibond the subcu was closed with 2-0 Vicryl and 0 Vicryl skin was closed with skin deanna. Medium bore Hemovac in place in the deep wound sterile compressive dressings placed patient was taken to recovery room in stable condition please note joint mix injection was placed in the posterior capsule and periosteal sleeves by the femur and tibia clemente COLÓN was necessary for prepping draping retraction wound closure of the fascia subcu skin was necessary for the case I attest to the content of the Intraoperative Record and any orders documented therein. Any exceptions are noted below.
--- NOTE | 2018-12-31 17:09 | XRay Report ---
XR knee LT 2V routine CLINICAL HISTORY: 88 years-old Male presenting with Surgical Post Op. TECHNIQUE: Frontal and crosstable lateral views of the left knee were obtained. COMPARISON: 11/05/2018. FINDINGS: There has been interval revision of the prior knee arthroplasty with longstem components now in place . Patellar resurfacing also noted. Surgical drain in place. Overlying skin deanna. Multiple surgical clips along the medial soft tissues likely related to prior vein harvesting. Large knee joint effusi on is present. Intra-articular and surrounding soft tissue emphysema. Significant regional soft tissu e swelling. More focal soft tissue swelling is noted along the medial proximal lower leg. No peripros thetic fracture or malalignment. No periprosthetic lucency. Underlying osteopenia may be present. IMPRESSION: 1. Overall expected postsurgical appearance status post revision of the total left knee arthroplasty and patellar resurfacing. 2. Focal soft tissue swelling at the medial proximal lower leg. Correlate clinically. Electronically signed by: Mazin Ralph M.D. 12/31/2018 5:08 PM
[2018-12-31] MEDS ORDERED: NITROGLYCERIN SL 0.4 MG/TAB TAB SL PRN (17:34)
[2018-12-31] MEDS ORDERED: MAGNESIUM HYDROXIDE SUSP 30 ML UDC PO PRN (17:34)
[2018-12-31] MEDS ORDERED: bisacodyL 10 MG SUPP PR PRN (17:34)
[2018-12-31] MEDS ORDERED: NALOXONE HCL 0.4 MG/1 ML VIAL/CARP IV PRN (17:34)
[2018-12-31] MEDS ORDERED: HYDROmorphone INJ 1 MG/ML SYRINGE IV PRN (17:34)
[2018-12-31] MEDS ORDERED: METOCLOPRAMIDE HCL INJ 5 MG/ML 2 ML VIAL IV PRN (17:34)
--- NOTE | 2018-12-31 17:44 | Anesthesiology Progress Note ---
Date of Service December 31, 2018 Anesthesia Post Procedure Vital Signs Vital Signs: Temp Pulse Pulse Resp BP Pulse Ox 12/31/18 17:05 36.3 C L 82 15 136/76 98 12/31/18 16:55 36.3 C L 81 16 142/88 H 97 12/31/18 16:45 36.3 C L 91 H 21 126/85 94 12/31/18 16:35 36.2 C L 83 20 131/86 94 12/31/18 16:25 36.2 C L 85 16 130/85 98 12/31/18 16:19 36.2 C L 87 15 115/74 96 12/31/18 10:44 37.2 C 76 18 144/88 H 97 Transfer of Care Handoff Completed per policy Notes Mental Status: alert / awake / arousable and participated in evaluation Patient Amnestic to Procedure: Yes Nausea / Vomiting: adequately controlled Pain: adequately controlled Airway Patency, RR, SpO2: stable & adequate BP & HR: stable & adequate Hydration State: stable & adequate Neuraxial Anesthesia: was administered and sensory block is resolving Anesthetic Complications: no major complications apparent
[2018-12-31] MEDS: DOCUSATE SODIUM 100 MG CAP PO SCH (20:15)
[2018-12-31] MEDS: SENNA 8.6 MG TAB PO SCH (20:15)
[2018-12-31] MEDS: CEFAZOLIN 2000MG 2,000 MG/15 ML SYR IV SCH (20:15)
[2018-12-31] MEDS: SODIUM CHLORIDE 0.9% 1000ML 1,000 ML IV SCH (20:15)
[2018-12-31] MEDS: ACETAMINOPHEN 500 MG TAB PO SCH (21:28)
[2019-01-01] MEDS: SODIUM CHLORIDE 0.9% 1000ML 1,000 ML IV SCH (03:52)
[2019-01-01] MEDS: ACETAMINOPHEN 500 MG TAB PO SCH ×3 (05:30→20:31)
[2019-01-01] MEDS: CEFAZOLIN 2000MG 2,000 MG/15 ML SYR IV SCH (05:31)
[2019-01-01 05:54] LABS: Hematocrit (blood only) 27.6 % (42-52); Hemoglobin 8.5 g/dL (14.0-18.0); Mean Corpuscular Hemoglobin 25.4 pg (25-34); Mean Corpuscular Hgb Conc 30.8 g/dL (32-36); Mean Corpuscular Volume 82.6 fL (80-100); Mean Platelet Volume 9.2 fL (7.4-10.4); Platelet Count 167 K/uL (130-400); RDW Coefficient of Variation 17.1 % (11.5-14.5); RDW Standard Deviation 51.9 fL (36.4-46.3); Red Blood Count 3.34 M/uL (4.7-6.1); White Blood Count 10.28 K/uL (4.8-10.8)
[2019-01-01 06:26] LABS: Calcium 8.5 mg/dl (8.5-10.1); Creatinine Clr Calc Pharmacy 47.8 ml/min; Est GFR (African American) 52.4; Est GFR (Non-African American) 45.2
--- NOTE | 2019-01-01 07:34 | Orthopedic Progress Note ---
Date of Service January 01, 2019 Assessment & Plan (1) Status post total left knee replacement: POD #1 s/p removal Abx Spacer and revision Left TKA pt/ot dvt proph with KENYA/SCD/ASA plan for d/c home with HHPT when stable Acute blood loss anemia- currently asymptomatic and vitals stable, recheck H/H in am Hemovac 300cc/8 hours, will cont and likely pull after decreases to 100 Subjective POD #1 s/p removal Abx spacer and revision Left TKA Review of Systems Constitutional: no fever, no chills and no sweats Respiratory: no cough and no dyspnea Cardiovascular: no chest pain and no dyspnea Gastrointestinal: no abdominal pain, no nausea and no vomiting Physical Exam Physical Exam: Vital Signs Temp Pulse Pulse Pulse Resp BP Pulse Ox 01/01/19 07:12 36.4 C L 90 16 115/60 92 01/01/19 02:36 36.4 C L 90 16 124/70 92 12/31/18 22:56 36.3 C L 86 18 100/61 92 12/31/18 21:29 95 H 117/71 94 12/31/18 20:33 36.3 C L 89 18 97/61 L 92 12/31/18 19:45 88 97/63 L 12/31/18 19:34 36.3 C L 93 H 20 99/62 L 95 12/31/18 18:29 36.6 C 91 H 16 133/79 94 12/31/18 18:00 36.5 C 89 18 133/81 92 12/31/18 17:05 36.3 C L 82 15 136/76 98 12/31/18 16:55 36.3 C L 81 16 142/88 H 97 12/31/18 16:45 36.3 C L 91 H 21 126/85 94 12/31/18 16:35 36.2 C L 83 20 131/86 94 12/31/18 16:25 36.2 C L 85 16 130/85 98 12/31/18 16:19 36.2 C L 87 15 115/74 96 12/31/18 10:44 37.2 C 76 18 144/88 H 97 Intake and Output 12/31/18 01/01/19 01/01/19 22:59 06:59 14:59 Intake Total 1425 / 2785 760 / 2785 Output Total 861 / 1161 300 / 1161 Balance 564 / 1624 460 / 1624 Intake: IV 760 / 1360 Nss 1000ML 1,0 00 ml @ 100 mls/ 760 / 760 hr IV .Q10H SC H Rx#:[id number] IV Perioperative 1100 / 1100 Oral 325 / 325 Output: Urine 250 / 250 Estimated Blood Loss 10 10 Drain Output 601 / 901 300 / 901 Left Knee Hemo vac #1 601 / 901 300 / 901 Other: # Unmeasured Voi ds 1 Weight 99.8 kg Constitutional: WD/WN, vitals as above no acute distress Musculoskeletal: Left Leg: NVDI, calf SNT, negative hua sign. DP palpable, able to wiggle toes/ankle movement without difficulty. dressing clean dry and intact. Vital Signs Temp 36.4 C L 01/01/19 07:12 Pulse 90 01/01/19 07:12 Resp 16 01/01/19 07:12 BP 115/60 01/01/19 07:12 Pulse Ox 92 01/01/19 07:12 Intake & Output 12/31/18 01/01/19 01/01/19 18:59 06:59 18:59 Intake Total 1700 / 2785 1085 / 2785 Output Total 311 / 1161 850 / 1161 Balance 1389 / 1624 235 / 1624 Weight 99.8 kg Intake: IV 600 / 1360 760 / 1360 Lr 1,000 ml @ 15 mls/hr IV . 600 / 600 Q24H CAMELIA Rx#:[id number] Nss 1000ML 1,0 00 ml @ 100 mls/ 760 / 760 hr IV .Q10H SC H Rx#:[id number] IV Perioperative 1100 / 1100 Oral 325 / 325 Output: Urine 250 / 250 Estimated Blood Loss 10 10 Drain Output 301 / 901 600 / 901 Left Knee Hemo vac #1 301 / 901 600 / 901 Other: # Unmeasured Voi ds 1 Results & Data Vital Signs (Past 12 Hours) Vital Signs Temp Pulse Pulse Resp BP Pulse Ox 01/01/19 07:12 36.4 C L 90 16 115/60 92 01/01/19 02:36 36.4 C L 90 16 124/70 92 12/31/18 22:56 36.3 C L 86 18 100/61 92 12/31/18 21:29 95 H 117/71 94 12/31/18 20:33 36.3 C L 89 18 97/61 L 92 12/31/18 19:45 88 97/63 L 12/31/18 19:34 36.3 C L 93 H 20 99/62 L 95 Laboratory Results Laboratory Results WBC 10.28 K/uL (4.8-10.8) 01/01/19 05:08 RBC 3.34 M/uL (4.7-6.1) L 01/01/19 05:08 Hgb 8.5 g/dL (14.0-18.0) L 01/01/19 05:08 Hct 27.6 % (42-52) L 01/01/19 05:08 MCV 82.6 fL (80-100) 01/01/19 05:08 MCH 25.4 pg (25-34) 01/01/19 05:08 MCHC 30.8 g/dL (32-36) L 01/01/19 05:08 RDW Std Deviation 51.9 fL (36.4-46.3) H 01/01/19 05:08 RDW Coeff of Ernesto 17.1 % (11.5-14.5) H 01/01/19 05:08 Plt Count 167 K/uL (130-400) 01/01/19 05:08 MPV 9.2 fL (7.4-10.4) 01/01/19 05:08 Immature Gran % (Auto) 0.0 % 12/16/18 14:40 Neut % (Auto) 63.7 % 12/16/18 14:40 Lymph % (Auto) 17.3 % 12/16/18 14:40 [place] % (Auto) 14.8 % 12/16/18 14:40 Eos % (Auto) 3.8 % 12/16/18 14:40 Baso % (Auto) 0.4 % 12/16/18 14:40 Immature Gran # (Auto) 0.00 K/uL (0.00-0.02) 12/16/18 14:40 Neut # (Auto) 2.83 K/uL (1.4-6.5) 12/16/18 14:40 Lymph # (Auto) 0.77 K/uL (1.2-3.4) L 12/16/18 14:40 [place] # (Auto) 0.66 K/uL (0.11-0.59) H 12/16/18 14:40 Eos # (Auto) 0.17 K/uL (0-0.5) 12/16/18 14:40 Baso # (Auto) 0.02 K/uL (0-0.2) 12/16/18 14:40 ESR 69 mm/hr (0-14) H 12/16/18 14:40 Sodium 139 mmol/L (136-145) 01/01/19 05:08 Potassium 4.0 mmol/L (3.5-5.1) D 01/01/19 05:08 Chloride 105 mmol/L (98-107) 01/01/19 05:08 Carbon Dioxide 26 mmol/L (21-32) 01/01/19 05:08 Anion Gap 8.0 (3-11) 01/01/19 05:08 BUN 36 mg/dl (7-18) H 01/01/19 05:08 Creatinine 1.40 mg/dl (0.6-1.4) 01/01/19 05:08 Est Cr Clr Drug Dosing 47.8 ml/min 01/01/19 05:08 Est GFR ( Amer) 52.4 01/01/19 05:08 Est GFR (Non-Af Amer) 45.2 01/01/19 05:08 BUN/Creatinine Ratio 26.0 (10-20) H 01/01/19 05:08 Glucose 137 mg/dl (70-99) H 01/01/19 05:08 Calcium 8.5 mg/dl (8.5-10.1) 01/01/19 05:08 C-Reactive Protein 1.39 mg/dl (0-0.29) H 12/16/18 14:40 Albumin 3.3 gm/dl (3.4-5.0) L 12/16/18 14:40 Urine Color Yellow 12/16/18 14:59 Urine Appearance Clear (Clear) 12/16/18 14:59 Urine pH 6.5 (4.5-7.5) 12/16/18 14:59 Ur Specific [place] 1.019 (1.000-1.030) 12/16/18 14:59 Urine Protein Trace (Negative) H 12/16/18 14:59 Urine Glucose (UA) Negative (Negative) 12/16/18 14:59 Urine Ketones Negative (Negative) 12/16/18 14:59 Urine Blood Trace (Negative) H 12/16/18 14:59 Urine Nitrite Negative (Negative) 12/16/18 14:59 Urine Bilirubin Negative (Negative) 12/16/18 14:59 Urine Urobilinogen Negative (Negative) 12/16/18 14:59 Ur Leukocyte Esterase Negative (Negative) 12/16/18 14:59 Urine WBC (Auto) 1-5 /hpf (0-5) 12/16/18 14:59 Urine RBC (Auto) 5-10 /hpf (0-4) H 12/16/18 14:59 U Hyaline Cast (Auto) 1-5 /lpf (0-5) 12/16/18 14:59 U Epithel Cells (Auto) 10-20 /lpf (0-5) H 12/16/18 14:59 Urine Bacteria (Auto) Negative (Negative) 12/16/18 14:59 Ethyl Alcohol mg/dL Cancelled 12/16/18 14:40 Blood Type O Positive 12/31/18 10:27 Antibody Screen NEGATIVE 12/31/18 10:27 Crossmatch See Detail 12/31/18 10:27 Diagnostic Findings Spec: [id number] Collected: 12/31/18-UNK Received: 12/31/18-[address]: Bill Coburn,D.O. Source: Synovial Fluid OV Order: Ordered: Aer/Kellie Cult/Sm Comments: Reason for Exam left knee revision Comment call [id number] Procedure Result Verified Site Gram Stain Final 12/31/18-1410 Gram Stain Result Rare WBCs Seen No Organisms Seen Aero/Kellie Cult PENDING XR knee LT 2V routine CLINICAL HISTORY: 88 years-old Male presenting with Surgical Post Op. TECHNIQUE: Frontal and crosstable lateral views of the left knee were obtained. COMPARISON: 11/05/2018. FINDINGS: There has been interval revision of the prior knee arthroplasty with longstem components now in place. Patellar resurfacing also noted. Surgical drain in place. Overlying skin deanna. Multiple surgical clips along the medial soft tissues likely related to prior vein harvesting. Large knee joint effusion is present. Intra-articular and surrounding soft tissue emphysema. Significant regional soft tissue swelling. More focal soft tissue swelling is noted along the medial proximal lower leg. No periprosthetic fracture or malalignment. No periprosthetic lucency. Underlying osteopenia may be present. IMPRESSION: 1. Overall expected postsurgical appearance status post revision of the total left knee arthroplasty and patellar resurfacing. 2. Focal soft tissue swelling at the medial proximal lower leg. Correlate clinically.
[2019-01-01] MEDS: APIXABAN 5 MG TABLET PO SCH ×2 (08:22→20:31)
[2019-01-01] MEDS: MULTIVITAMIN TAB PO SCH (08:22)
[2019-01-01] MEDS: DOCUSATE SODIUM 100 MG CAP PO SCH ×2 (08:23→20:31)
[2019-01-01] MEDS: TAMSULOSIN HCL 0.4 MG CAP PO SCH (08:23)
[2019-01-01] MEDS: SENNA 8.6 MG TAB PO SCH (20:31)
[2019-01-01] MEDS: BISOPROLOL HCTZ PO SCH ×2 (20:32→20:43)
[2019-01-02] MEDS: ACETAMINOPHEN 500 MG TAB PO SCH ×3 (05:24→20:40)
[2019-01-02 05:38] LABS: Basophils # (auto) 0.01 K/uL (0-0.2); Basophils % (auto) 0.1 %; Eosinophils # (auto) 0.02 K/uL (0-0.5); Eosinophils % (auto) 0.2 %; Hematocrit (blood only) 23.4 % (42-52); Hemoglobin 7.4 g/dL (14.0-18.0); Immature Granulocytes # (auto) 0.01 K/uL (0.00-0.02); Immature Granulocytes % (auto) 0.1 %; Lymphocytes # (auto) 0.57 K/uL (1.2-3.4); Lymphocytes % (auto) 6.9 %; Mean Corpuscular Hemoglobin 25.9 pg (25-34); Mean Corpuscular Hgb Conc 31.6 g/dL (32-36); Mean Corpuscular Volume 81.8 fL (80-100); Monocytes # (auto) 1.02 K/uL (0.11-0.59); Monocytes % (auto) 12.4 %; Neutrophils # (auto) 6.58 K/uL (1.4-6.5); Neutrophils % (auto) 80.3 %; Platelet Count 142 K/uL (130-400); RDW Coefficient of Variation 17.4 % (11.5-14.5); RDW Standard Deviation 52.1 fL (36.4-46.3); Red Blood Count 2.86 M/uL (4.7-6.1); White Blood Count 8.21 K/uL (4.8-10.8)
[2019-01-02 06:25] LABS: Hypochromasia Present; Ovalocytes 1+
[2019-01-02] MEDS: MULTIVITAMIN TAB PO SCH (09:07)
[2019-01-02] MEDS: APIXABAN 5 MG TABLET PO SCH ×2 (09:07→20:40)
[2019-01-02] MEDS: DOCUSATE SODIUM 100 MG CAP PO SCH ×2 (09:07→20:41)
[2019-01-02] MEDS: TAMSULOSIN HCL 0.4 MG CAP PO SCH (09:07)
[2019-01-02] MEDS: OXYCODONE HCL IR 5 MG TAB (IMMEDIATE RELEASE) PO PRN (09:09)
--- NOTE | 2019-01-02 11:45 | Orthopedic Progress Note ---
Date of Service January 02, 2019 Assessment & Plan (1) Status post total left knee replacement: POD #2 s/p removal Abx Spacer and revision Left TKA pt/ot dvt proph with KENYA/SCD/ASA plan for d/c home with HHPT when stable Acute blood loss anemia- went from 8.5 to 7.4 today. Plan to transfuse 1 unit PRBC. Subjective Postop day 2 status post left revision TKA Patient is currently sitting up in the chair at the bedside. No complaints at this time. Denies any shortness of breath, chest pain, lightheadedness. Pain is controlled. Physical Exam Physical Exam: Prevena wound VAC dressing is clean, dry, and intact. No overt drainage noted. No overt erythema around the knee. Calves are soft nontender. Neurovascular is intact. Toes are mobile. Results & Data Vital Signs (Past 12 Hours) Vital Signs Temp Pulse Resp BP Pulse Ox 01/02/19 07:24 36.6 C 85 16 136/81 95 Laboratory Results Laboratory Results WBC 8.21 K/uL (4.8-10.8) 01/02/19 05:02 RBC 2.86 M/uL (4.7-6.1) L 01/02/19 05:02 Hgb 7.4 g/dL (14.0-18.0) L 01/02/19 05:02 Hct 23.4 % (42-52) L 01/02/19 05:02 MCV 81.8 fL (80-100) 01/02/19 05:02 MCH 25.9 pg (25-34) 01/02/19 05:02 MCHC 31.6 g/dL (32-36) L 01/02/19 05:02 RDW Std Deviation 52.1 fL (36.4-46.3) H 01/02/19 05:02 RDW Coeff of Ernesto 17.4 % (11.5-14.5) H 01/02/19 05:02 Plt Count 142 K/uL (130-400) 01/02/19 05:02 MPV 9.0 fL (7.4-10.4) 01/02/19 05:02 Immature Gran % (Auto) 0.1 % 01/02/19 05:02 Neut % (Auto) 80.3 % 01/02/19 05:02 Lymph % (Auto) 6.9 % 01/02/19 05:02 [place] % (Auto) 12.4 % 01/02/19 05:02 Eos % (Auto) 0.2 % 01/02/19 05:02 Baso % (Auto) 0.1 % 01/02/19 05:02 Immature Gran # (Auto) 0.01 K/uL (0.00-0.02) 01/02/19 05:02 Neut # (Auto) 6.58 K/uL (1.4-6.5) H 01/02/19 05:02 Lymph # (Auto) 0.57 K/uL (1.2-3.4) L 01/02/19 05:02 [place] # (Auto) 1.02 K/uL (0.11-0.59) H 01/02/19 05:02 Eos # (Auto) 0.02 K/uL (0-0.5) 01/02/19 05:02 Baso # (Auto) 0.01 K/uL (0-0.2) 01/02/19 05:02 Hypochromasia Present 01/02/19 05:02 Ovalocytes 1+ 01/02/19 05:02 ESR 69 mm/hr (0-14) H 12/16/18 14:40 Sodium 139 mmol/L (136-145) 01/01/19 05:08 Potassium 4.0 mmol/L (3.5-5.1) D 01/01/19 05:08 Chloride 105 mmol/L (98-107) 01/01/19 05:08 Carbon Dioxide 26 mmol/L (21-32) 01/01/19 05:08 Anion Gap 8.0 (3-11) 01/01/19 05:08 BUN 36 mg/dl (7-18) H 01/01/19 05:08 Creatinine 1.40 mg/dl (0.6-1.4) 01/01/19 05:08 Est Cr Clr Drug Dosing 47.8 ml/min 01/01/19 05:08 Est GFR ( Amer) 52.4 01/01/19 05:08 Est GFR (Non-Af Amer) 45.2 01/01/19 05:08 BUN/Creatinine Ratio 26.0 (10-20) H 01/01/19 05:08 Glucose 137 mg/dl (70-99) H 01/01/19 05:08 Calcium 8.5 mg/dl (8.5-10.1) 01/01/19 05:08 C-Reactive Protein 1.39 mg/dl (0-0.29) H 12/16/18 14:40 Albumin 3.3 gm/dl (3.4-5.0) L 12/16/18 14:40 Urine Color Yellow 12/16/18 14:59 Urine Appearance Clear (Clear) 12/16/18 14:59 Urine pH 6.5 (4.5-7.5) 12/16/18 14:59 Ur Specific [place] 1.019 (1.000-1.030) 12/16/18 14:59 Urine Protein Trace (Negative) H 12/16/18 14:59 Urine Glucose (UA) Negative (Negative) 12/16/18 14:59 Urine Ketones Negative (Negative) 12/16/18 14:59 Urine Blood Trace (Negative) H 12/16/18 14:59 Urine Nitrite Negative (Negative) 12/16/18 14:59 Urine Bilirubin Negative (Negative) 12/16/18 14:59 Urine Urobilinogen Negative (Negative) 12/16/18 14:59 Ur Leukocyte Esterase Negative (Negative) 12/16/18 14:59 Urine WBC (Auto) 1-5 /hpf (0-5) 12/16/18 14:59 Urine RBC (Auto) 5-10 /hpf (0-4) H 12/16/18 14:59 U Hyaline Cast (Auto) 1-5 /lpf (0-5) 12/16/18 14:59 U Epithel Cells (Auto) 10-20 /lpf (0-5) H 12/16/18 14:59 Urine Bacteria (Auto) Negative (Negative) 12/16/18 14:59 Ethyl Alcohol mg/dL Cancelled 12/16/18 14:40 Blood Type O Positive 12/31/18 10:27 Antibody Screen NEGATIVE 12/31/18 10:27 Crossmatch See Detail 12/31/18 10:27
[2019-01-02] MEDS ORDERED: SODIUM CHLORIDE 0.9% 250 ML IV PRN (11:50)
[2019-01-02] MEDS: SENNA 8.6 MG TAB PO SCH (20:41)
[2019-01-02] MEDS: BISOPROLOL HCTZ PO SCH (20:43)
[2019-01-03 05:25] LABS: Basophils # (auto) 0.01 K/uL (0-0.2); Basophils % (auto) 0.2 %; Eosinophils # (auto) 0.23 K/uL (0-0.5); Hemoglobin 7.8 g/dL (14.0-18.0); Immature Granulocytes # (auto) 0.02 K/uL (0.00-0.02); Immature Granulocytes % (auto) 0.4 %; Lymphocytes # (auto) 0.78 K/uL (1.2-3.4); Lymphocytes % (auto) 13.7 %; Mean Corpuscular Hemoglobin 25.9 pg (25-34); Mean Corpuscular Hgb Conc 31.2 g/dL (32-36); Mean Corpuscular Volume 83.1 fL (80-100); Monocytes # (auto) 1.15 K/uL (0.11-0.59); Monocytes % (auto) 20.2 %; Neutrophils % (auto) 61.5 %; Platelet Count 144 K/uL (130-400); RDW Coefficient of Variation 17.4 % (11.5-14.5); RDW Standard Deviation 53.3 fL (36.4-46.3); Red Blood Count 3.01 M/uL (4.7-6.1); White Blood Count 5.69 K/uL (4.8-10.8)
[2019-01-03] MEDS: ACETAMINOPHEN 500 MG TAB PO SCH ×2 (05:30→14:51)
[2019-01-03 05:54] LABS: Creatinine Clr Calc Pharmacy 50.3 ml/min; Est GFR (African American) 55.7; Est GFR (Non-African American) 48.1
[2019-01-03 06:05] LABS: RBC Morphology Unremarkable
[2019-01-03] MEDS ORDERED: SODIUM CHLORIDE 0.9% 250 ML IV PRN (07:14)
[2019-01-03] MEDS: MULTIVITAMIN TAB PO SCH (08:48)
[2019-01-03] MEDS: APIXABAN 5 MG TABLET PO SCH (08:48)
[2019-01-03] MEDS: TAMSULOSIN HCL 0.4 MG CAP PO SCH (08:48)
[2019-01-03] MEDS: OXYCODONE HCL IR 5 MG TAB (IMMEDIATE RELEASE) PO PRN ×2 (08:50→15:39)
[2019-01-03] MEDS: DOCUSATE SODIUM 100 MG CAP PO SCH (08:51)
--- NOTE | 2019-01-03 08:58 | Orthopedic Progress Note ---
Date of Service January 03, 2019 Assessment & Plan (1) Status post total left knee replacement: POD #2 s/p removal Abx Spacer and revision Left TKA continue pt/ot dvt proph with KENYA/SCD/ASA plan for d/c home with HHPT when stable Pt seen by Dr Fernando yesterday afternoon on rounds at 1700 Acute blood loss anemia- went from 7.4 to 7.8 today. Transfusing one more unit PRBC. Plan for repeat Hgb early afternoon. Plans discussed with Dr Coburn. Subjective POD 3 s/p Revision Left TKA Pt sitting in chair at bedside. Receiving one more unit of PRBC's. Hgb 7.8 after one unit given yesterday. 1 more unit ordered for this AM. Pt awake, alert, without complaints. Pain controlled. Feels he is doing well. Ambulated approx 250' yesterday. Physical Exam Physical Exam: Prevena dressing intact. No overt erythema noted around the knee. Calves are soft,NT. NV intact. Results & Data Vital Signs (Past 12 Hours) Vital Signs Temp Pulse Pulse Pulse Resp BP BP 01/03/19 08:44 36.4 C L 79 16 125/67 01/03/19 08:23 36.4 C L 81 16 154/88 H 01/03/19 07:26 36.6 C 81 16 141/85 H 01/02/19 23:07 36.6 C 84 17 97/61 L Pulse Ox 01/03/19 08:44 95 01/03/19 08:23 95 01/03/19 07:26 95 01/02/19 23:07 94
--- NOTE | 2019-01-04 05:53 | Discharge Summary ---
Date of Service Date of Discharge: January 03, 2019 Date of Admission: 12-31-18 Admission HPI Per Admitting Provider Mr Christensen is an 88 year old male who is here for a follow up of left knee pain, presents for pre-op evaluation prior to left knee removal of antibiotic spacer and revision left total knee replacement at [facility]. He recently underwent removal of TKA and placement of antibiotic spacer in October 2018. He tolerated the procedure well and was discharged on PO Cipro and has recently completed his course. He followed up with Dr coburn on 12/16/18 and underwent left knee aspiration which had no organisms on gram stain and negative cultures. His initial history was that he underwent a left TKA on 11-29-16 and initially did well except for some generalized stiffness in his knee. After about 9 months he was having pain along with his stiffness without any known injuries. It was then decided to proceed with left knee arthroscopy with excision of hypertrophic scar on 11-28-17. At that time, intra-op cultures and gram stain were performed, and was negative for any organisms and no growth. After that, in September 2018 he presented to our office with recurrent knee effusion, since his synovial fluid was negative for organisms and negative cultures from November, it was felt a b one scan was necessary to rule out aseptic loosening or infection and aspirated was held at that time due to previous negative cultures. Bone scan results showing increased uptake concerning for joint infection. At that visit synovasure testing was performed and was felt that patient would need removal of TKA and placement of Abx spacer. Subsequently underwent removal of TKA, has completed course of Abx and is now ready for revision TKA. Principal Diagnosis infected left total knee replacement Discharge Exam Vital Signs Temp Pulse Pulse Pulse Pulse Resp BP 01/03/19 16:58 36.5 C 82 85 81 20 01/03/19 16:56 36.5 C 82 85 81 20 01/03/19 16:40 36.5 C 82 85 81 20 01/03/19 15:02 36.5 C 85 20 01/03/19 11:42 36.5 C 82 18 142/72 H 01/03/19 10:00 36.5 C 79 18 103/59 L 01/03/19 09:29 36.7 C 81 18 121/69 01/03/19 08:59 36.5 C 79 18 111/64 01/03/19 08:44 36.4 C L 79 16 125/67 01/03/19 08:23 36.4 C L 81 16 154/88 H 01/03/19 07:26 36.6 C 81 16 BP Pulse Ox 01/03/19 16:58 129/75 96 01/03/19 16:56 129/75 96 01/03/19 16:40 129/75 96 01/03/19 15:02 129/75 96 01/03/19 11:42 97 01/03/19 10:00 96 01/03/19 09:29 97 01/03/19 08:59 95 01/03/19 08:44 95 01/03/19 08:23 95 01/03/19 07:26 141/85 H 95 Intake and Output 01/03/19 01/03/19 01/04/19 14:59 22:59 06:59 Intake Total 310 / 310 Balance 310 / 310 Intake: Intake (Blood Product) Amt 310 / 310 Packed Cells, Leukoreduced 310 / 310 Unit [id number] Other: Weight 99.8 kg Patient Weight 01/04/19 06:59 Weight 99.8 kg Constitutional WD/WN, vitals as above no acute distress Musculoskeletal left knee: NVDI, calf SNT, negative uha sign. DP palpable, able to wiggle toes/ankle movement without difficulty. Prevena wound vac on and functioning. expected post-operative bruising noted. Discharge Data Allergies Allergy/AdvReac Type Severity Reaction Status Date / Time Zwiwpny-Avl-Gqu Reductase AdvReac Unknown MUSCLE Verified 12/31/18 10:41 Inhibitor ACHES Consultations 12/31/18 17:34 Consult Case Management - Discharge Planning Routine Procedures Performed Operation Date: 12/31/18 13:05 Actual Procedures p Left Total Knee Revision with Removal of Antibiotic Spacer(Left) - Bill Coburn DO Ordered Studies 12/31/18 05:00 US - OR guided needle placemen Routine Laboratory Results WBC 5.69 K/uL (4.8-10.8) 01/03/19 04:54 RBC 3.01 M/uL (4.7-6.1) L 01/03/19 04:54 Hgb 9.4 g/dL (14.0-18.0) L 01/03/19 15:51 Hct 25.0 % (42-52) L 01/03/19 04:54 MCV 83.1 fL (80-100) 01/03/19 04:54 MCH 25.9 pg (25-34) 01/03/19 04:54 MCHC 31.2 g/dL (32-36) L 01/03/19 04:54 RDW Std Deviation 53.3 fL (36.4-46.3) H 01/03/19 04:54 RDW Coeff of Ernesto 17.4 % (11.5-14.5) H 01/03/19 04:54 Plt Count 144 K/uL (130-400) 01/03/19 04:54 MPV 9.0 fL (7.4-10.4) 01/03/19 04:54 Immature Gran % (Auto) 0.4 % 01/03/19 04:54 Neut % (Auto) 61.5 % 01/03/19 04:54 Lymph % (Auto) 13.7 % 01/03/19 04:54 [place] % (Auto) 20.2 % 01/03/19 04:54 Eos % (Auto) 4.0 % 01/03/19 04:54 Baso % (Auto) 0.2 % 01/03/19 04:54 Immature Gran # (Auto) 0.02 K/uL (0.00-0.02) 01/03/19 04:54 Neut # (Auto) 3.50 K/uL (1.4-6.5) 01/03/19 04:54 Lymph # (Auto) 0.78 K/uL (1.2-3.4) L 01/03/19 04:54 [place] # (Auto) 1.15 K/uL (0.11-0.59) H 01/03/19 04:54 Eos # (Auto) 0.23 K/uL (0-0.5) 01/03/19 04:54 Baso # (Auto) 0.01 K/uL (0-0.2) 01/03/19 04:54 RBC Morphology Unremarkable 01/03/19 04:54 Hypochromasia Present 01/02/19 05:02 Ovalocytes 1+ 01/02/19 05:02 ESR 69 mm/hr (0-14) H 12/16/18 14:40 Sodium 139 mmol/L (136-145) 01/01/19 05:08 Potassium 4.0 mmol/L (3.5-5.1) D 01/01/19 05:08 Chloride 105 mmol/L (98-107) 01/01/19 05:08 Carbon Dioxide 26 mmol/L (21-32) 01/01/19 05:08 Anion Gap 8.0 (3-11) 01/01/19 05:08 BUN 36 mg/dl (7-18) H 01/01/19 05:08 Creatinine 1.33 mg/dl (0.6-1.4) 01/03/19 04:54 Est Cr Clr Drug Dosing 50.3 ml/min 01/03/19 04:54 Est GFR ( Amer) 55.7 01/03/19 04:54 Est GFR (Non-Af Amer) 48.1 01/03/19 04:54 BUN/Creatinine Ratio 26.0 (10-20) H 01/01/19 05:08 Glucose 137 mg/dl (70-99) H 01/01/19 05:08 Calcium 8.5 mg/dl (8.5-10.1) 01/01/19 05:08 C-Reactive Protein 1.39 mg/dl (0-0.29) H 12/16/18 14:40 Albumin 3.3 gm/dl (3.4-5.0) L 12/16/18 14:40 Urine Color Yellow 12/16/18 14:59 Urine Appearance Clear (Clear) 12/16/18 14:59 Urine pH 6.5 (4.5-7.5) 12/16/18 14:59 Ur Specific [place] 1.019 (1.000-1.030) 12/16/18 14:59 Urine Protein Trace (Negative) H 12/16/18 14:59 Urine Glucose (UA) Negative (Negative) 12/16/18 14:59 Urine Ketones Negative (Negative) 12/16/18 14:59 Urine Blood Trace (Negative) H 12/16/18 14:59 Urine Nitrite Negative (Negative) 12/16/18 14:59 Urine Bilirubin Negative (Negative) 12/16/18 14:59 Urine Urobilinogen Negative (Negative) 12/16/18 14:59 Ur Leukocyte Esterase Negative (Negative) 12/16/18 14:59 Urine WBC (Auto) 1-5 /hpf (0-5) 12/16/18 14:59 Urine RBC (Auto) 5-10 /hpf (0-4) H 12/16/18 14:59 U Hyaline Cast (Auto) 1-5 /lpf (0-5) 12/16/18 14:59 U Epithel Cells (Auto) 10-20 /lpf (0-5) H 12/16/18 14:59 Urine Bacteria (Auto) Negative (Negative) 12/16/18 14:59 Ethyl Alcohol mg/dL Cancelled 12/16/18 14:40 Blood Type O Positive 12/31/18 10:27 Antibody Screen NEGATIVE 12/31/18 10:27 Crossmatch See Detail 12/31/18 10:27 Microbiology 12/31/18 Unknown Synovial Fluid Gram Stain - Final 12/31/18 Unknown Synovial Fluid Aerobic and Anaerobic Culture - Preliminary No growth to date. Hospital Course (1) Status post total left knee replacement: POD #3 s/p removal Abx Spacer and revision Left TKA continue pt/ot dvt proph with KENYA/SCD/ASA plan for d/c home with HHPT Acute blood loss anemia- went from 7.4 to 7.8 today. Transfusing one more unit PRBC. He did receive 1 unit of PRBC on POD #2 and 1 more unit on POD #3. Hemoglobin after 2nd unit at 9.4 Total Time Total Time Spent Total Time Spent (In Minutes): 20 Total Time Includes: Examination of the Patient, Discharge Planning and Medication Reconciliation Discharge Plan Discharge Items Patient Disposition: Home - Home Health Services Reason For Visit: LEFT KNEE INFECTION & INFLAMMATORY REACTION D/T IN Discharge Diagnosis: S/P Left Knee Infection/Inflammatory Reaction Activity: Per Instructions section Weightbearing: Left weightbearing Weightbearing Comment: as tolerated with walker Non-emergency contact: Surgeon Call non-emergency contact if: your pain is not controlled, your temperature is above 101.5, your wound has increased redness and your wound has increased drainage Follow-up/Referrals: Bill Israel, D.O. [Primary Care Provider] - Diet: Regular Ambulatory Orders: Complete Blood Count with Diff (Routine) Timeframe: 3 Days Location: Determined by Patient Ordered By: Obinna Hardy Attending Provider Instructions: ACTIVITY RECOMMENDATIONS: SELF CARE INSTRUCTIONS AFTER TOTAL KNEE REPLACEMENT A. You may need to continue a physical therapy program after discharge from the hospital. There are several options available to you. Your doctor will assist you in selecting the best one for you. 1. An out-patient facility 2 to 3 times a week for therapy or home therapy. 2. Continue working on all exercises taught to you in the hospital. Your goals should be to increase bending of your knee to 90 degrees and beyond and to fully straighten your knee. B. You may progress at your own pace from walking with a walker or crutches to a cane; then to no assistive devices. C. Make walking a part of your daily routine. Be up as much as comfortable with rest periods throughout the day. Rest with leg elevation is very important. Use the ice wrap frequently for the first 3-4 weeks. D. There are no restrictions on activities. You may ride in a car, shop, participate in life educator and all social activities. E. Wear the long elastic stockings (KENYA hose) 20 hours a day for 2 weeks after surgery. They can be removed several times a day for laundering and for a bath. F. You may shower, no tub baths until cleared by your doctor. SPECIAL CARE INSTRUCTIONS: VERY IMPORTANT TO READ AND REVIEW A. There are a few signs you need to watch for after you are home. Call [facility] if you notice any of the followin. Increased severe knee pain. Some pain is expected especially when you exercise. 2. Increased swelling in your leg or knee; pain or swelling of the calf muscle in either lower leg. 3. Any fluid drainage from the incision. 4. Shortness of breath or chest pain. B. Please call [facility] at if you have any concerns or questions about your operation or recovery. The doctor or his nurse will return your call promptly. C. You must take antibiotics before dental work, bladder, bowel or other surgery. Your doctor will provide you with a permanent care to carry describing this precaution. IMPORTANT: * REMEMBER TO TAKE ASPIRIN, 81 MG, TWICE DAILY FOR 4 WEEKS UNLESS OTHERWISE DIRECTED. THIS IS YOUR BLOOD THINNER. * HIGH RISK PATIENTS MAY BE PRESCRIBED A STRONGER BLOOD THINNER. THIS WILL BE PROVIDED AT DISCHARGE. * CALL IF INCREASED PAIN, REDNESS, DRAINAGE OR FEVER GREATER THAT 101. * WEAR KENYA HOSE 20 HOURS PER DAY FOR 2 WEEKS. * Prevena- This is a large suction dressing covering your incision. This will help pull any excess drainage from the wound and allow your incision to heal properly. You may shower with this if you can keep the unit outside of the shower. If any bleeding or leakage is noted please call your doctor's office. This will remain on your incision for 7 days and then should be removed. This can be done yourself or by the home nursing staff if applicable. The entire unit is disposable once removed. Once removed, keep incision clean and dry. If redness or drainage is noted, please call your surgeon. . FOLLOW UP VISIT: If appointment is not already scheduled: Please call [facility] to make a follow-up appointment for 2 weeks after your surgery at . Stand-Alone Forms: My [facility] Medications and DC Order Prescriptions: New acetaminophen [Tylenol Extra Strength] 500 mg Tablet 1,000 mg PO Q8 14 Days Qty: 84 RF: 0 oxycodone 5 mg Tablet 5 - 10 mg PO .q4-6h PRN (Reason: pain) Qty: 30 RF: 0 cefadroxil 500 mg capsule 500 mg PO BID Qty: 28 RF: 1 Continued bisoprolol-hydrochlorothiazide 10-6.25 mg Tablet 1 tab PO QPM RF: 0 nitroglycerin [Nitrostat] 0.4 mg Tablet, Sublingual 0.4 mg Sublingual UD PRN (Reason: Chest Pain) RF: 0 furosemide 20 mg Tablet 40 mg PO QAM RF: 0 Eliquis 5 mg Tablet 5 mg PO BID RF: 0 tamsulosin [Flomax] 0.4 mg Capsule 0.4 mg PO QAM RF: 0 sennosides [Senokot] 8.6 mg tablet 17.2 mg PO UD PRN (Reason: Constipation) RF: 0 Discontinued oxycodone 5 mg Tablet 5 mg PO Q6H PRN (Reason: pain) Qty: 30 RF: 0 acetaminophen [Tylenol] 325 mg Capsule 325 mg PO Q6H PRN (Reason: Pain) RF: 0 Discharge Orders: Discharge Order (Routine); Ordered 01/03/19 Ordered By: Obinna Hansen/Other Patient Handouts: Surgery Prevent DVT After, Closure Wound Vacuum Assisted Admission Data Admit Date/Time: 12/31/18 16:20 Attending Provider: Bill Coburn Admit Provider: Bill Coburn Primary Care Provider: Bill Israel Other Interventions: Discharge Summary Assessment (RN) Last Done: 01/03/19 16:58 DC Date/Time DO NOT enter until pt leaves facility: 01/03/19 18:35
== END 2019-01-03 18:35 | disposition home health service (06) | DRG 467 ==
LOC: ASU 10:04 → 3W 16:20
DX: Z95.5 Presence of coronary angioplasty implant and graft; N40.0 Benign prostatic hyperplasia without lower urinary tract symptoms; Z96.651 Presence of right artificial knee joint; I48.20 Chronic atrial fibrillation, unspecified; M21.862 Other specified acquired deformities of left lower leg; D62 Acute posthemorrhagic anemia; Z96.652 Presence of left artificial knee joint; I11.9 Hypertensive heart disease without heart failure; I25.10 Atherosclerotic heart disease of native coronary artery without angina pectoris; Z95.1 Presence of aortocoronary bypass graft; Z79.01 Long term (current) use of anticoagulants; I50.22 Chronic systolic (congestive) heart failure; I25.5 Ischemic cardiomyopathy